=== PATIENT | male | born 1965 | race Caucasian/White ===

== ENCOUNTER 2017-01-13 13:17 | Emergency (ER) | payer OTHER ==
[2017-01-13 13:38] VITALS: BP 111/63
--- NOTE | 2017-01-13 13:53 | UC ---
Complaint Male HPI - HPI Summary HPI Summary: pt presents with sudden onset of left side testicular pain. Pain reports that he was eating lunch and had sudden onset of left side testicular pain. Denies injury, recent STD exposure, dysuria or penile discharge. - History of Current Complaint Chief Complaint: UCGU Stated Complaint: PERSONAL Time Seen by Provider: 01/13/17 13:40 Hx Obtained From: Patient Onset/Duration: Sudden Onset, Lasting Hours Timing: Constant Severity Initially: Moderate Severity Currently: Mild Location: Testicle - left side Character: Sharp Alleviating Factor(s): Nothing Associated Signs And Symptoms: Positive: Negative - Allergies/Home Medications Allergies/Adverse Reactions: Allergies Allergy/AdvReac Type Severity Reaction Status Date / Time Levofloxacin [From Levaquin] AdvReac Dizziness Verified 01/13/17 13:31 Home Medications: Home Medications Spicer-3 Fatty Acids [Fish Oil] 1,000 mg PO DAILY 01/13/17 [History Confirmed 09/21] PMH/Surg Hx/FS Hx/Imm Hx Previously Healthy: Yes Endocrine History Of: Denies: Diabetes Cardiovascular History Of: Reports: Hypertension Respiratory History Of: Denies: Asthma Neurological History Of: Reports: TIA - Surgical History Surgical History: None - Family History Known Family History: Positive: Other - positive [facility] for URI - Social History Alcohol Use: Daily Alcohol Amount: 3 cans beer daily Substance Use Type: None Smoking Status (MU): Never Smoked Tobacco Review of Systems Constitutional: Negative Skin: Negative Eyes: Negative ENT: Negative Respiratory: Negative Cardiovascular: Negative Gastrointestinal: Negative Genitourinary: Other - left side testicular pain Motor: Negative Neurovascular: Negative Musculoskeletal: Negative Neurological: Negative Psychological: Negative All Other Systems Reviewed And Are Negative: Yes Physical Exam Triage Information Reviewed: Yes Appearance: Well-Appearing Vital Signs: Initial Vital Signs Temp 98.5 F 01/13/17 13:32 Pulse 75 01/13/17 13:32 Resp 16 01/13/17 13:32 BP 111/63 01/13/17 13:32 Pulse Ox 98 01/13/17 13:32 Vital Signs Reviewed: Yes Eye Exam: Normal Respiratory Exam: Other Respiratory: Positive: No respiratory distress Abdomen Description: Positive: Other: - no palpable scrotum/testicles, no inguinal hernia appreciated, no noted sores or discharge on scrotum or penis. No swelling on scrotum/testicles. Neurological Exam: Normal Psychological Exam: Normal Skin Exam: Normal Complaint Male Course/Dx - Course Course Of Treatment: I spoke with the pt discussing no appreciated mass, lump, swelling, discharge or sores in genital area. UA did not reveal any abnormal results. Irecommended that he follow up with his PCP, return to clinic or seek care at the closest ED is symptoms worsen or do not resolve. - Differential Dx/Diagnosis Differential Diagnosis/HQI/PQRI: Epididymitis, Urinary Tract Infection, Other - testicular pain Provider Diagnoses: testicular pain-left side Discharge - Discharge Plan Condition: Stable Disposition: HOME Patient Education Materials: Testicle Pain (ED) Referrals: Sajan Cifuentes NP [Nurse Practitioner] - Sparkle Garcia PA [Primary Care Provider] - Additional Instructions: Your physical exam and laboratory tests did not reveal any active illness, injury or unusual finding. Please follow up with your PCP or return to clinic as needed. If your symptoms worsen please seek care as soon as possible.
== END 2017-01-13 14:36 | disposition home or self-care (01) ==
LOC: UCCORT 13:17
DX: N50.812 Left testicular pain (principal); I10 Essential (primary) hypertension; Z86.73 Personal history of transient ischemic attack (TIA), and cerebral infarction without residual deficits; Z88.1 Allergy status to other antibiotic agents
CPT/HCPCS: 81003; 87491; 87591; 99211; G0463

== ENCOUNTER 2017-11-27 12:01 | Emergency (ER) | payer OTHER ==
--- OUTSIDE RECORDS SUMMARY | 2017-11-27 12:12 | XMS REPORT ---
:1965 External Reference #:[id number] Author Organization [facility] Address [address], [address] [place] [address] Phone [phone] Care Team Providers Name Role Phone Sincere Haynes Care Team Information Vice President Sales And Marketing Unavailable Connie Rivera MD Primary Care Physician Unavailable Payers Type Date Identification Numbers Payment Provider Subscriber Commercial Effective: Policy Number: [facility] Rickie Vásquez JR 2016 [id number] PayID: [id number] [address] [place] [address] Medicaid Policy Number: [id number] Medicaid Rickie Vásquez JR PayID: [id number] [address] [place] [address] Problems Date Description Provider Status Onset: 01/15/2014 Chest pain MARCK Marte Active Onset: 01/15/2014 Pure hyperglyceridemia MARCK Marte Active Note: 227 April 2017; LDL 50 Onset: 05/04/2016 Trochanteric bursitis Blayne Milton M.D. Active Onset: 09/18/2016 Spermatocele Sparkle Garcia PA-C Active Note: L testicle; persistent left epididymal body and tail cyst Onset: 09/18/2016 Adult health examination Sparkle Garcia PA-C Active Note: PSA Aug 2016; fatty liver hx noted Upper 2012 Onset: 09/18/2016 Polyp of colon Sparkle Garcia PA-C Active Note: TA; colo to TI Bx March 2013 Onset: 09/18/2016 Liver cyst Sparkle Garcia PA-C Active Note: CT 2012 Onset: 12/19/2016 H/O: TIA Sparkle Garcia PA-C Active Note: 2014; LDL 23 HDL Dec Onset: 04/18/2017 Arthritis of shoulder region joint YUNIOR Chavez Active Note: R Onset: 06/25/2017 Hemorrhoids without complication Narayan Dillard MD,FACS Active Onset: 06/25/2017 Diarrhea Narayan Dillard MD,FACS Active Onset: 07/30/2017 Congenital cystic disease of liver Narayan Dillard MD,FACS Active Onset: 08/31/2017 Abdominal pain Osman Isbell MD Active Onset: 08/31/2017 Constipation Osman Isbell MD Active Onset: 10/17/2017 Hyperlipidemia Connie Rivera MD Active Onset: 10/17/2017 Essential hypertension Connie Rivera MD Active Onset: 10/17/2017 Low back pain Connie Rivera MD Active Onset: 06/08/2017 Other hemorrhoids Osman Isbell MD Inactive Inactive: 10/16/2017 Onset: 08/31/2017 Abnormal findings diagnostic imaging of Osman Isbell MD Inactive liver+biliary tract Inactive: 10/16/2017 Onset: 08/31/2017 History of polyp of colon Osman Isbell MD Inactive Inactive: 10/16/2017 Onset: 09/18/2016 Dysthymia Sparkle Garcia PA-C Inactive Inactive: 10/16/2017 Family History Date Family Member(s) Problem(s) Comments General Non Contributory Onset: (age 65 Years) Father Myocardial Infarction and of CVA Mother Stroke Social History Type Date Description Comments Marital Status Single Home Environment Lives Alone Diet Patient follows no dietary restrictions Occupation Currently Working Occupation Dog Warden Work Status Currently Working ADL's/IADL's Independent with all ADL's Cigarette Use Never Smoked Cigarettes Smokeless Tobacco Never Used Smokeless Tobacco ETOH Use Drinks Alcoholic Beverages Occasionally 3-4 d ETOH Use Uses Alcohol Daily Smoking Patient denies history of smoking Recreational Drug Use Denies Drug Use Daily Caffeine Consumes on average 5 sodas per day Allergies, Adverse Reactions, Alerts Date Description Reaction Status Severity Comments 09/18/2016 Levaquin active severe dizziness 01/13/2014 NKDA inactive Medications Medication Date Status Form Strength Qnty SIG Indications Ordering Provider Cyclobenzaprine 11/13/ Active Tablets 10mg 30tab 1 tab by Connie HCL 2017 s mouth at Miguel, night for back pain Miralax 08/31/ Active Powder 3350NF 3Bott 3 cap by K59.00 Young 2017 les mouth MD Sukhi every day every morning Mucinex 03/26/ Active Tablets ER 600mg 60tab 1 by mouth Connie 2017 12HR s twice a Miguel, day as MD needed Atorvastatin 12/19/ Active Tablets 20mg 30tab take one Connie Calcium 2016 s tablet by Miguel, mouth every evening Naproxen 11/22/ Active Tablets 500mg 180ta 1 by mouth Jarad Crum 2016 bs every 12 David DO hours as needed Fish Oil 09/18/ Active Capsules 600mg 1 po daily Jarad Crum 2015 David DO Aspirin Ec / Active Tablets DR 81mg 90tab 1 by mouth Mata 0000 s every day Ruben Guido Metoprolol / Active Tablets 100mg 90tab 1 by mouth Mata Tartrate 0000 s daily Ruben Guido Peg 08/31/ Hx Solution 240gm 4000m drink 1/2 K59.00 Osman 3350/Electrolytes 2017 Rec l at night MD Sukhi prior and drink 1/2 in the morning of the procedure Amoxicillin 07/03/ Hx Capsules 500mg 21cap 1 by mouth J01.90 Mata 2016 - three Guido, 07/30/ times a M.D. 2017 day x 7 days Benzonatate 07/03/ Hx Capsules 200mg 90cap 1 by mouth J01.90 Mata 2016 three Guido, 07/30/ times a M.D. 2016 day as needed cough Niacin ER 05/02/ Hx Tablets ER 500mg 180ta 1 by mouth G45.9 Mata (Antihyperlipidem 2016 - (500 mg) brandon Guido) 07/03/ every M.D. 2017 night at bedtime x4 week, then incr. to 2 tablets (1000 mg) qhs. Triamcinolone 12/19/ Hx Cream 0.1% 90gm apply R21 Mata Acetonide 2016 spaingly Guido, twice a M.D. day as needed to arms for pruritus x 3 weeks Hydroxyzine HCL 12/19/ Hx Tablets 25mg 360ta 1-2 by R21 Mata 2017 - bs mouth at Guido, 07/30/ night as M.D. 2016 needed for itching Lisinopril 10/03/ Hx Tablets 10mg 30tab 1 by mouth Blayne 2016 - s every day [place], 10/04/ M.D. 2016 Atorvastatin 09/18/ Hx Tablets 40mg 90tab 1 tab by Z86.73 Jarad Crum Calcium 2016 - s mouth David DO 12/19/ daily at 2017 bedtime Acetaminophen 09/18/ Hx Tablets 500mg 150ta 2 by mouth M70.60 Jarad Crum Extra Strength 2016 bs three David DO times a day as needed No Active Hx Unknown Medications 2013 - 2014 No Active Hx Unknown Medications 2013 - 2013 Tricor / Hx Tablets 145mg 30tab 1 po qd Unknown 0000 s Gemfibrozil / Hx Tablets 600mg 1 by mouth Unknown 0000 - twice a day 2015 Metoprolol / Hx Tablets 25mg 1 by mouth Unknown Tartrate 0000 twice a day Ibuprofen / Hx Tablets Unknown 0000 Mucinex / Hx Tablets ER 600mg Take One Unknown 0000 12HR Tablet By Mouth Twice A Day as Needed Gemfibrozil / Hx Tablets 600mg Oralia 0000 - Cary 12/19/ Nanci, 2016 RPA-C Omeprazole / Hx Capsules 20mg 1 po daily [place], 0000 DR Peters, BOND UNDERWRITER Immunizations CPT Code Status Date Vaccine Lot # [id number] Given 04/18/2017 Tdap injection [id number] Vital Signs Date Vital Result Comment 11/13/2017 BP Systolic 123 mmHg BP Diastolic 73 mmHg Heart Rate 68 /min Respiratory Rate 14 /min Height 66 inches 5'6" Weight 204.38 lb BMI (Body Mass Index) 33.0 kg/m2 BSA (Body Surface Area) 2.02 m2 Louin body weight in kilograms 64 O2 % BldC Oximetry 95 % 10/17/2017 BP Systolic Sitting Left Arm 126 mmHg BP Diastolic Sitting Left Arm 78 mmHg Heart Rate 78 /min Respiratory Rate 16 /min Height 66 inches 5'6" Weight 200.00 lb BMI (Body Mass Index) 32.3 kg/m2 BSA (Body Surface Area) 2.00 m2 Lou[place] body weight in kilograms 64 08/31/2017 BP Systolic Sitting Left Arm 122 mmHg BP Diastolic Sitting Left Arm 82 mmHg Heart Rate 70 /min Respiratory Rate 16 /min Height 66 inches 5'6" Weight 200.00 lb BMI (Body Mass Index) 32.3 kg/m2 BSA (Body Surface Area) 2.00 m2 Louin body weight in kilograms 64 07/30/2017 BP Systolic 119 mmHg BP Diastolic 80 mmHg Body Temperature 97.5 F Heart Rate 59 /min Height 66 inches 5'6" Weight 198.00 lb BMI (Body Mass Index) 32.0 kg/m2 BSA (Body Surface Area) 1.99 m2 Louin body weight in kilograms 64 07/11/2017 BP Systolic 132 mmHg BP Diastolic 88 mmHg Height 66 inches 5'6" Weight 197.00 lb BMI (Body Mass Index) 31.8 kg/m2 BSA (Body Surface Area) 1.99 m2 Louin body weight in kilograms 64 07/03/2017 BP Systolic 128 mmHg BP Diastolic 86 mmHg Body Temperature 98.0 F Heart Rate 62 /min Respiratory Rate 16 /min Height 66 inches 5'6" Weight 195.50 lb BMI (Body Mass Index) 31.6 kg/m2 BSA (Body Surface Area) 1.98 m2 Louin body weight in kilograms 64 O2 % BldC Oximetry 97 % 06/25/2017 BP Systolic 130 mmHg BP Diastolic 88 mmHg Body Temperature 97.6 F Heart Rate 60 /min Height 66 inches 5'6" Weight 196.00 lb BMI (Body Mass Index) 31.6 kg/m2 BSA (Body Surface Area) 1.98 m2 Louin body weight in kilograms 64 O2 % BldC Oximetry 95 % 06/08/2017 BP Systolic Sitting Left Arm 120 mmHg BP Diastolic Sitting Left Arm 76 mmHg Heart Rate 67 /min Respiratory Rate 16 /min Height 66 inches 5'6" Weight 196.00 lb BMI (Body Mass Index) 31.6 kg/m2 BSA (Body Surface Area) 1.98 m2 Louin body weight in kilograms 64 05/02/2017 BP Systolic Sitting Left Arm 123 mmHg BP Diastolic Sitting Left Arm 77 mmHg Body Temperature 98.0 F Heart Rate 71 /min Height 66 inches 5'6" Weight 205.25 lb BMI (Body Mass Index) 33.1 kg/m2 BSA (Body Surface Area) 2.02 m2 Louin body weight in kilograms 64 O2 % BldC Oximetry 98 % 04/18/2017 BP Systolic 124 mmHg BP Diastolic 84 mmHg Heart Rate 74 /min Height 66 inches 5'6" Weight 204.00 lb BMI (Body Mass Index) 32.9 kg/m2 BSA (Body Surface Area) 2.02 m2 Louin body weight in kilograms 64 12/19/2016 BP Systolic 134 mmHg BP Diastolic 86 mmHg Heart Rate 74 /min Height 66 inches 5'6" Weight 207.00 lb BMI (Body Mass Index) 33.4 kg/m2 BSA (Body Surface Area) 2.03 m2 10/10/2016 BP Systolic 132 mmHg BP Diastolic 88 mmHg Body Temperature 97.7 F Heart Rate 64 /min Height 66 inches 5'6" Weight 199.00 lb BMI (Body Mass Index) 32.1 kg/m2 BSA (Body Surface Area) 2.00 m2 09/18/2016 BP Systolic 122 mmHg BP Diastolic 81 mmHg Heart Rate 72 /min Height 66 inches 5'6" Weight 198.00 lb BMI (Body Mass Index) 32.0 kg/m2 BSA (Body Surface Area) 1.99 m2 05/04/2016 BP Systolic 136 mmHg BP Diastolic 91 mmHg Heart Rate 67 /min Height 66 inches 5'6" Weight 206.00 lb BMI (Body Mass Index) 33.2 kg/m2 BSA (Body Surface Area) 2.03 m2 Louin body weight in kilograms 64 01/15/2014 BP Systolic Sitting Right Arm 136 mmHg BP Diastolic Sitting Right Arm 88 mmHg Heart Rate 87 /min Respiratory Rate 16 /min Height 63 inches 5'3" Weight 212.00 lb BMI (Body Mass Index) 37.6 kg/m2 BSA (Body Surface Area) 1.98 m2 Results Test Date Test Result H/L Range Note LDL Cholesterol Profile 10/12/2017 Cholesterol 119 mg/dL <200 1, 2 Triglycerides 191 mg/dL High <150 1, 3 HDL Cholesterol 40 mg/dL >40 1, 4 LDL-Cholesterol 41 mg/dL < 100 1, 5 Laboratory test finding 10/12/2017 Prostate Specific 0.43 ng/mL < 4.0 1, 6 Antigen CBS W/Automated Diff 10/12/2017 White Blood Count 8.4 K/uL 3.4-10.5 1 Red Blood Count 4.48 M/uL 4.20-5.80 1 Hemoglobin 14.4 gm/dL 12.8-17.0 1 Hematocrit 42.6 % 38.0-48.0 1 Mean Cell Volume 95.1 fl 80.0-96.0 1 Mean Corpuscular HGB 32.1 pg 27.0-33.0 1 Mean Corpuscular HGB Conc 33.8 g/dL 31.7-36.0 1 Platelet Count 288 K/uL 155-360 1 Red Cell Distri Width SD 42.1 fl 36-51 1 Red Cell Distri Width %CV 12.4 % 11.6-15.8 1 Mean Platelet Volume 8.8 fL 6.6-10.6 1 Neut% 34.0 % 33.0-73.0 1 Lymph % 59.6 % High 20.0-42.0 1 Cameron % 5.1 % 0.0-10.0 1 Eo% 1.1 % 0.0-6.6 1 Bas% 0.2 % 0.0-1.1 1 Neut# 2.83 K/uL 1.8-7.0 1 Lymph # 4.98 K/uL High 1.0-4.0 1 Cameron # 0.43 K/uL 0.0-0.8 1 Eos # 0.09 K/uL 0.0-0.5 1 Baso # 0.02 K/uL 0.0-0.1 1 Comprehensive Metabolic Panel 10/12/2017 Glucose 109 mg/dL High 74-106 1 BUN 23 mg/dL High 7-18 1 Creatinine 1.2 mg/dL 0.6-1.3 1 Glom Filtration Rate, Estimate >60 mL/min >60 1 If >60 mL/min >60 1, 7 BUN/Creat 19.1 ratio 1 Sodium 140 mmol/L 136-145 1 Potassium 4.0 mmol/L 3.5-5.1 1 Chloride 107 mmol/L 98-107 1 Carbon Dioxide 29 mmol/L 21-32 1 Anion Gap 4 mEq/L Low 8-16 1 Calcium 8.9 mg/dL 8.5-10.1 1 Total Protein 7.2 g/dL 6.4-8.2 1 Albumin 3.8 g/dL 3.4-5.0 1 Globulin 3.4 g/dL 1.9-4.3 1 Alb/Glob 1.1 ratio 1 Bilirubin,Total 0.8 mg/dL 0.2-1.0 1 Sgot/Ast 21 U/L 15-37 1 SGPT/Alt 43 U/L 12-78 1 Alkaline Phosphatase 48 U/L 45-117 1 Ua RFX Micro & Culture II 09/29/2017 Urine Color YELLOW Yellow 8 Urine Clarity CLEAR Clear 8 Urine Glucose - Dipstick NEGATIVE mg/dL Negative 8 Urine Bilirubin - Dipstick NEGATIVE Negative 8 Urine Ketone NEGATIVE mg/dL Negative 8 Urine Specific [place] >=1.030 1.010-1.030 8 Urine Blood NEGATIVE Negative 8 Urine PH 5.5 Low 6.5-7.5 8 Urine Protein - Dipstick NEGATIVE mg/dL Negative 8 Urine Urobilinogen - Dipstick 0.2 E.U./dL 0.2-1.0 8 Urine Nitrite - Dipstick NEGATIVE Negative 8 Urine Leuk Esterase NEGATIVE Negative 8 Source: URINE, CLEAN CAT <SEE NOTE> 8, 9 CBS W/Automated Diff 09/29/2017 White Blood Count 7.7 K/uL 3.4-10.5 8 Red Blood Count 4.36 M/uL 4.20-5.80 8 Hemoglobin 14.2 gm/dL 12.8-17.0 8 Hematocrit 41.5 % 38.0-48.0 8 Mean Cell Volume 95.2 fl 80.0-96.0 8 Mean Corpuscular HGB 32.6 pg 27.0-33.0 8 Mean Corpuscular HGB Conc 34.2 g/dL 31.7-36.0 8 Platelet Count 263 K/uL 150-400 8 Red Cell Distri Width SD 42.4 fl 36-51 8 Red Cell Distri Width %CV 12.6 % 11.6-15.8 8 Mean Platelet Volume 9.0 fL 6.6-10.6 8 Neut% 33.5 % 33.0-73.0 8 Lymph % 58.7 % High 20.0-42.0 8 Cameron % 5.8 % 0.0-10.0 8 Eo% 1.7 % 0.0-6.6 8 Bas% 0.3 % 0.0-1.1 8 Neut# 2.59 K/uL 1.8-7.0 8 Lymph # 4.53 K/uL High 1.0-4.0 8 Cameron # 0.45 K/uL 0.0-0.8 8 Eos # 0.13 K/uL 0.0-0.5 8 Baso # 0.02 K/uL 0.0-0.1 8 Ua RFX Micro & Culture II 08/28/2017 Urine Color YELLOW Yellow 10 Urine Clarity CLEAR Clear 10 Urine Glucose - Dipstick NEGATIVE mg/dL Negative 10 Urine Bilirubin - Dipstick NEGATIVE Negative 10 Urine Ketone NEGATIVE mg/dL Negative 10 Urine Specific [place] 1.025 1.010-1.030 10 Urine Blood NEGATIVE Negative 10 Urine PH 6.0 Low 6.5-7.5 10 Urine Protein - Dipstick NEGATIVE mg/dL Negative 10 Urine Urobilinogen - Dipstick 0.2 E.U./dL 0.2-1.0 10 Urine Nitrite - Dipstick NEGATIVE Negative 10 Urine Leuk Esterase NEGATIVE Negative 10 Source: URINE, CLEAN CAT <SEE 10, 11 NOTE> CBS W/Automated Diff 08/28/2017 White Blood Count 9.2 K/uL 3.4-10.5 10 Red Blood Count 4.26 M/uL 4.20-5.80 10 Hemoglobin 13.9 gm/dL 12.8-17.0 10 Hematocrit 41.0 % 38.0-48.0 10 Mean Cell Volume 96.2 fl High 80.0-96.0 10 Mean Corpuscular HGB 32.6 pg 27.0-33.0 10 Mean Corpuscular HGB Conc 33.9 g/dL 31.7-36.0 10 Platelet Count 236 K/uL 150-400 10 Red Cell Distri Width SD 43.3 fl 36-51 10 Red Cell Distri Width %CV 12.8 % 11.6-15.8 10 Mean Platelet Volume 9.2 fL 6.6-10.6 10 Neut% 41.6 % 33.0-73.0 10 Lymph % 50.5 % High 20.0-42.0 10 Cameron % 6.5 % 0.0-10.0 10 Eo% 1.1 % 0.0-6.6 10 Bas% 0.3 % 0.0-1.1 10 Neut# 3.83 K/uL 1.8-7.0 10 Lymph # 4.66 K/uL High 1.0-4.0 10 Cameron # 0.60 K/uL 0.0-0.8 10 Eos # 0.10 K/uL 0.0-0.5 10 Baso # 0.03 K/uL 0.0-0.1 10 Comprehensive Metabolic Panel 08/28/2017 Glucose 87 mg/dL 74-106 10 BUN 25 mg/dL High 7-18 10 Creatinine 1.2 mg/dL 0.6-1.3 10 Glom Filtration Rate, Estimate >60 mL/min >60 10 If >60 mL/min >60 10, 12 BUN/Creat 20.8 ratio 10 Sodium 141 mmol/L 136-145 10 Potassium 3.8 mmol/L 3.5-5.1 10 Chloride 107 mmol/L 98-107 10 Carbon Dioxide 27 mmol/L 21-32 10 Anion Gap 7 mEq/L Low 8-16 10 Calcium 9.0 mg/dL 8.5-10.1 10 Total Protein 7.1 g/dL 6.4-8.2 10 Albumin 4.0 g/dL 3.4-5.0 10 Globulin 3.1 g/dL 1.9-4.3 10 Alb/Glob 1.3 ratio 10 Bilirubin,Total 0.6 mg/dL 0.2-1.0 10 Sgot/Ast 21 U/L 15-37 10 SGPT/Alt 37 U/L 12-78 10 Alkaline Phosphatase 44 U/L Low 45-117 10 Laboratory test finding 08/28/2017 Lipase 228 U/L 56-289 10 Occult Blood,Stool 08/28/2017 Stool Occult NEGATIVE Negative 10, 13 Blood-Single Spec Laboratory test finding 07/19/2017 CK 108 U/L 39-308 14 Troponin-I < 0.015 ng/mL 14, 15 Comprehensive Metabolic Panel 07/19/2017 Glucose 105 mg/dL 74-106 14 BUN 25 mg/dL High 7-18 14 Creatinine 1.2 mg/dL 0.6-1.3 14 Glom Filtration Rate, Estimate >60 mL/min >60 14 If >60 mL/min >60 14, 16 BUN/Creat 20.8 ratio 14 Sodium 143 mmol/L 136-145 14 Potassium 4.0 mmol/L 3.5-5.1 14 Chloride 108 mmol/L High 98-107 14 Carbon Dioxide 27 mmol/L 21-32 14 Anion Gap 8 mEq/L 8-16 14 Calcium 8.5 mg/dL 8.5-10.1 14 Total Protein 6.5 g/dL 6.4-8.2 14 Albumin 3.8 g/dL 3.4-5.0 14 Globulin 2.7 g/dL 1.9-4.3 14 Alb/Glob 1.4 ratio 14 Bilirubin,Total 1.2 mg/dL High 0.2-1.0 14 Sgot/Ast 17 U/L 15-37 14 SGPT/Alt 37 U/L 12-78 14 Alkaline Phosphatase 48 U/L 45-117 14 CBS W/Automated Diff 07/19/2017 White Blood Count 6.5 K/uL 3.4-10.5 14 Red Blood Count 4.03 M/uL Low 4.20-5.80 14 Hemoglobin 13.3 gm/dL 12.8-17.0 14 Hematocrit 38.5 % 38.0-48.0 14 Mean Cell Volume 95.5 fl 80.0-96.0 14 Mean Corpuscular HGB 33.0 pg 27.0-33.0 14 Mean Corpuscular HGB Conc 34.5 g/dL 31.7-36.0 14 Platelet Count 262 K/uL 150-400 14 Red Cell Distri Width SD 41.2 fl 36-51 14 Red Cell Distri Width %CV 12.1 % 11.6-15.8 14 Mean Platelet Volume 9.4 fL 6.6-10.6 14 Neut% 36.6 % 33.0-73.0 14 Lymph % 56.2 % High 20.0-42.0 14 Cameron % 5.2 % 0.0-10.0 14 Eo% 1.7 % 0.0-6.6 14 Bas% 0.3 % 0.0-1.1 14 Neut# 2.39 K/uL 1.8-7.0 14 Lymph # 3.67 K/uL 1.0-4.0 14 Cameron # 0.34 K/uL 0.0-0.8 14 Eos # 0.11 K/uL 0.0-0.5 14 Baso # 0.02 K/uL 0.0-0.1 14 Basic Metabolic Panel 06/27/2017 Glucose 103 mg/dL 74-106 17 BUN 26 mg/dL High 7-18 17 Creatinine 1.1 mg/dL 0.6-1.3 17 Glom Filtration Rate, Estimate >60 mL/min >60 17 If >60 mL/min >60 17, 18 BUN/Creat 23.6 ratio 17 Sodium 143 mmol/L 136-145 17 Potassium 4.2 mmol/L 3.5-5.1 17 Chloride 110 mmol/L High 98-107 17 Carbon Dioxide 29 mmol/L 21-32 17 Anion Gap 4 mEq/L Low 8-16 17 Calcium 9.2 mg/dL 8.5-10.1 17 CBC 06/27/2017 White Blood Count 7.3 K/uL 3.4-10.5 17 Red Blood Count 4.20 M/uL 4.20-5.80 17 Hemoglobin 13.7 gm/dL 12.8-17.0 17 Hematocrit 40.3 % 38.0-48.0 17 Mean Cell Volume 96.0 fl 80.0-96.0 17 Mean Corpuscular HGB 32.6 pg 27.0-33.0 17 Mean Corpuscular HGB Conc 34.0 g/dL 31.7-36.0 17 Platelet Count 262 K/uL 150-400 17 Red Cell Distri Width %CV 12.2 % 11.6-15.8 17 Mean Platelet Volume 9.7 fL 6.6-10.6 17 Xray 06/02/2017 Ultrasound, <pending> Abdominal Comprehensive 06/02/2017 Glucose 112 mg/dL High 74-106 19 Metabolic Panel BUN 27 mg/dL High 7-18 19 Creatinine 1.2 mg/dL 0.6-1.3 19 Glom Filtration Rate, Estimate >60 mL/min >60 19 If >60 mL/min >60 19, 20 BUN/Creat 22.5 ratio 19 Sodium 141 mmol/L 136-145 19 Potassium 3.9 mmol/L 3.5-5.1 19 Chloride 108 mmol/L High 98-107 19 Carbon Dioxide 26 mmol/L 21-32 19 Anion Gap 7 mEq/L Low 8-16 19 Calcium 8.9 mg/dL 8.5-10.1 19 Total Protein 6.7 g/dL 6.4-8.2 19 Albumin 3.7 g/dL 3.4-5.0 19 Globulin 3.0 g/dL 1.9-4.3 19 Alb/Glob 1.2 ratio 19 Bilirubin,Total 1.1 mg/dL High 0.2-1.0 19 Sgot/Ast 42 U/L High 15-37 19 SGPT/Alt 55 U/L 12-78 19 Alkaline Phosphatase 50 U/L 45-117 19 CBS W/Automated Diff 06/02/2017 White Blood Count 6.8 K/uL 3.4-10.5 19 Red Blood Count 4.02 M/uL Low 4.20-5.80 19 Hemoglobin 13.3 gm/dL 12.8-17.0 19 Hematocrit 38.1 % 38.0-48.0 19 Mean Cell Volume 94.8 fl 80.0-96.0 19 Mean Corpuscular HGB 33.1 pg High 27.0-33.0 19 Mean Corpuscular HGB Conc 34.9 g/dL 31.7-36.0 19 Platelet Count 249 K/uL 150-400 19 Red Cell Distri Width SD 40.8 fl 36-51 19 Red Cell Distri Width %CV 12.1 % 11.6-15.8 19 Mean Platelet Volume 9.2 fL 6.6-10.6 19 Neut% 40.2 % 33.0-73.0 19 Lymph % 51.3 % High 20.0-42.0 19 Cameron % 6.6 % 0.0-10.0 19 Eo% 1.8 % 0.0-6.6 19 Bas% 0.1 % 0.0-1.1 19 Neut# 2.72 K/uL 1.8-7.0 19 Lymph # 3.48 K/uL 1.0-4.0 19 Cameron # 0.45 K/uL 0.0-0.8 19 Eos # 0.12 K/uL 0.0-0.5 19 Baso # 0.01 K/uL 0.0-0.1 19 Laboratory test finding 04/30/2017 CK 99 U/L 39-308 21, 22 Troponin-I < 0.015 ng/mL 21, 23 Ua RFX Micro & Culture II 04/30/2017 Urine Color YELLOW Yellow 21 Urine Clarity CLEAR Clear 21 Urine Glucose - Dipstick NEGATIVE mg/dL Negative 21 Urine Bilirubin - Dipstick NEGATIVE Negative 21 Urine Ketone NEGATIVE mg/dL Negative 21 Urine Specific [place] >=1.030 1.010-1.030 21 Urine Blood NEGATIVE Negative 21 Urine PH 5.0 Low 6.5-7.5 21 Urine Protein - Dipstick NEGATIVE mg/dL Negative 21 Urine Urobilinogen - Dipstick 0.2 E.U./dL 0.2-1.0 21 Urine Nitrite - Dipstick NEGATIVE Negative 21 Urine Leuk Esterase NEGATIVE Negative 21 Source: URINE, CLEAN CAT <SEE , 24 NOTE> Comprehensive Metabolic Panel 04/30/2017 Glucose 127 mg/dL High 74-106 21 BUN 23 mg/dL High 7-18 21 Creatinine 1.1 mg/dL 0.6-1.3 21 Glom Filtration Rate, Estimate >60 mL/min >60 21 If >60 mL/min >60 21, 25 BUN/Creat 20.9 ratio 21 Sodium 141 mmol/L 136-145 21 Potassium 3.6 mmol/L 3.5-5.1 21 Chloride 107 mmol/L 98-107 21 Carbon Dioxide 26 mmol/L 21-32 21 Anion Gap 8 mEq/L 8-16 21 Calcium 8.5 mg/dL 8.5-10.1 21 Total Protein 6.7 g/dL 6.4-8.2 21 Albumin 3.9 g/dL 3.4-5.0 21 Globulin 2.8 g/dL 1.9-4.3 21 Alb/Glob 1.4 ratio 21 Bilirubin,Total 0.8 mg/dL 0.2-1.0 21 Sgot/Ast 21 U/L 15-37 21 SGPT/Alt 46 U/L 12-78 21 Alkaline Phosphatase 45 U/L 45-117 21 Laboratory test finding 04/30/2017 Act Partial Thrombo 25.0 seconds 23.4- 35.0 21, 26 Time Ethyl Alcohol < 3.0 mg/dL 21, 27 Protime 04/30/2017 Protime 13.6 seconds 12.0-14.4 21 Inr 1.1 0.9-1.1 21, 28 CBS W/Automated Diff 04/30/2017 White Blood Count 7.3 K/uL 3.4-10.5 21 Red Blood Count 4.04 M/uL Low 4.20-5.80 21 Hemoglobin 13.5 gm/dL 12.8-17.0 21 Hematocrit 38.5 % 38.0-48.0 21 Mean Cell Volume 95.3 fl 80.0-96.0 21 Mean Corpuscular HGB 33.4 pg High 27.0-33.0 21 Mean Corpuscular HGB Conc 35.1 g/dL 31.7-36.0 21 Platelet Count 244 K/uL 150-400 21 Red Cell Distri Width SD 41.3 fl 36-51 21 Red Cell Distri Width %CV 12.2 % 11.6-15.8 21 Mean Platelet Volume 9.2 fL 6.6-10.6 21 Neut% 32.0 % Low 33.0-73.0 21 Lymph % 59.7 % High 20.0-42.0 21 Cameron % 5.6 % 0.0-10.0 21 Eo% 2.2 % 0.0-6.6 21 Bas% 0.5 % 0.0-1.1 21 Neut# 2.33 K/uL 1.8-7.0 21 Lymph # 4.36 K/uL High 1.0-4.0 21 Cameron # 0.41 K/uL 0.0-0.8 21 Eos # 0.16 K/uL 0.0-0.5 21 Baso # 0.04 K/uL 0.0-0.1 21 LDL Cholesterol Profile 04/17/2017 Cholesterol 133 mg/dL <200 29, 30 Triglycerides 227 mg/dL High <150 29, 31 HDL Cholesterol 38 mg/dL Low >40 29, 32 LDL-Cholesterol 50 mg/dL < 100 29, 33 GC/Chlamydia Amplified Rna 01/13/2017 Chlamydia trachomatis Negative Negative 34 Rna Neisseria gonorrhoeae (GC) Rna Negative Negative 34 Poc Urinalysis 01/13/2017 Poc Glucose, Urine Negative Negative Poc Bilirubin, Urine Negative Negative Poc Ketone, Urine Negative Negative Poc Specific [place], Urine >=1.030 1.010-1.030 Poc Blood, Urine Negative Negative Poc pH, Urine 5.0 5-9 Poc Protein, Urine Negative Negative Poc Urobilinogen, Urine 0.2 Negative Poc Nitrite, Urine Negative Negative Poc Leukocytes, Urine Negative Negative Poc Color, Urine Yellow Poc Clarity, Urine Clear 35 LDL Cholesterol Profile 12/19/2016 Cholesterol 112 mg/dL <200 36, 37 Triglycerides 276 mg/dL High <150 36, 38 HDL Cholesterol 34 mg/dL Low >40 36, 39 LDL-Cholesterol 23 mg/dL < 100 36, 40 Comprehensive Metabolic Panel 12/19/2016 Glucose 121 mg/dL High 74-106 36 BUN 15 mg/dL 7-18 36 Creatinine 1.1 mg/dL 0.6-1.3 36 Glom Filtration Rate, Estimate >60 mL/min >60 36 If >60 mL/min >60 36, 41 BUN/Creat 13.6 ratio 36 Sodium 141 mmol/L 136-145 36 Potassium 3.6 mmol/L 3.5-5.1 36 Chloride 105 mmol/L 98-107 36 Carbon Dioxide 26 mmol/L 21-32 36 Anion Gap 10 mEq/L 8-16 36 Calcium 8.6 mg/dL 8.5-10.1 36 Total Protein 6.6 g/dL 6.4-8.2 36 Albumin 3.8 g/dL 3.4-5.0 36 Globulin 2.8 g/dL 1.9-4.3 36 Alb/Glob 1.4 ratio 36 Bilirubin,Total 0.7 mg/dL 0.2-1.0 36 Sgot/Ast 21 U/L 15-37 36 SGPT/Alt 39 U/L 12-78 36 Alkaline Phosphatase 45 U/L 45-117 36 Ua RFX Micro & Culture II 10/10/2016 Urine Color YELLOW Yellow 42 Urine Clarity CLEAR Clear 42 Urine Glucose - Dipstick NEGATIVE mg/dL Negative 42 Urine Bilirubin - Dipstick NEGATIVE Negative 42 Urine Ketone NEGATIVE mg/dL Negative 42 Urine Specific [place] >=1.030 1.010-1.030 42 Urine Blood TRACE Negative 42 Urine PH 5.0 Low 6.5-7.5 42 Urine Protein - Dipstick NEGATIVE mg/dL Negative 42 Urine Urobilinogen - Dipstick 0.2 E.U./dL 0.2-1.0 42 Urine Nitrite - Dipstick NEGATIVE Negative 42 Urine Leuk Esterase NEGATIVE Negative 42 Source: URINE, CLEAN CAT <SEE 42, 43 NOTE> CBC 10/03/2016 White Blood Count 6.8 K/uL 3.4-10.5 44 Red Blood Count 4.35 M/uL 4.20-5.80 44 Hemoglobin 14.7 gm/dL 12.8-17.0 44 Hematocrit 42.3 % 38.0-48.0 44 Mean Cell Volume 97.2 fl High 80.0-96.0 44 Mean Corpuscular HGB 33.8 pg High 27.0-33.0 44 Mean Corpuscular HGB Conc 34.8 g/dL 31.7-36.0 44 Platelet Count 330 K/uL 150-400 44 Red Cell Distri Width %CV 12.9 % 11.6-15.8 44 Mean Platelet Volume 9.3 fL 6.6-10.6 44 Lupus Anticoagulant Reflex 10/03/2016 PTT-LA 32.2 sec 0.0-40.6 44 DRVVT 42.8 sec 0.0-44.0 44 Note: Comment: . 44, 45 Lyme AB/Western Blot 10/03/2016 Lyme Total AB/Reflex < 0.91 ISR 0.00- 0.90 44, 46 Reflex To WB Lyme Disease Antibody,QT,Igm <0.80 index 0.00-0.79 44, 47 Rheumatoid Panel ([facility]) 10/03/2016 Sedimentation Rate 4 mm/hr 0-15 44 Uric Acid 7.0 mg/dL 3.5-7.2 44 Hla-B27 Disease Association Negative . 44, 48 Anti-Nuclear Antibodies Direct Negative AU/mL Negative 44 Rheumatoid Factor Screen < 10.0 IU/mL 0.0-15.0 44 C-Reactive Protein,Quant < 2.9 mg/L <3.0 44 1 Z86.73,E78.5,Z12.5 2 Reference Guidelines*: Desirable: ........... < 200 mg/dL Borderline High: ..... 200-239 mg/dL High: ................ >=240 mg/dL * The National Cholesterol Education Program (NCEP) 3 Reference Guidelines*: Normal: ............. < 150 mg/dL Borderline High: .... 150-199 mg/dL High: ............... 200-499 mg/dL Very High: .......... > 500 mg/dL * Source: National Cholesterol Education Program (NCEP) 4 Reference Guidelines*: Low HDL: ..... < 40 mg/dL Normal: ..... 40-60 mg/dL Desirable: ... > 60 mg/dL *The National Cholesterol Education Program(NCEP) 5 Reference Guidelines*: Optimal:........... <100 mg/dL Near Optimal....... 100-129 mg/dL Borderline High.... 130-159 mg/dL High............... 160-189 mg/dL Very High.......... >=190 mg/dL * Source: National Cholesterol Education Program (NCEP) 6 THIS ASSAY IS NOT INTENDED A CANCER SCREENING TEST The concentration of PSA in a given specimen, determined with assays from different manufacturers, can vary due to differences in assay methods and reagent specificity. Values obtained from different assay methods cannot be used interchangeably. Method: [employer] Chemiluminescent immunoassay. 7 Note: Persistent reduction for 3 months or more in an eGFR <60 mL/min/1.73 m2 defines CKD. Patients with eGFR values >/=60 mL/min/1.73 m2 may also have CKD if evidence of persistent proteinuria is present. The original MDRD equation for estimated GFR is not valid for patients less than 18 years of age. Additional information may be found at www.kdoqi.org. 8 R SIDED PAIN 9 URINE, CLEAN CATCH 10 DIARRHEA,NAUSEA,DIZZY,LOWER ABDOMINAL PAIN 11 URINE, CLEAN CATCH 12 Note: Persistent reduction for 3 months or more in an eGFR <60 mL/min/1.73 m2 defines CKD. Patients with eGFR values >/=60 mL/min/1.73 m2 may also have CKD if evidence of persistent proteinuria is present. The original MDRD equation for estimated GFR is not valid for patients less than 18 years of age. Additional information may be found at www.kdoqi.org. 13 Method: [employer]u Hemoccult Card 14 NAUSEA,LEFT ARM PAIN,DIZZY 15 0.0 - 0.045 ng/mL: Normal 0.046 - 0.5 ng/mL: Suggestive 0.6 - 1.5 ng/mL: Consistent 16 Note: Persistent reduction for 3 months or more in an eGFR <60 mL/min/1.73 m2 defines CKD. Patients with eGFR values >/=60 mL/min/1.73 m2 may also have CKD if evidence of persistent proteinuria is present. The original MDRD equation for estimated GFR is not valid for patients less than 18 years of age. Additional information may be found at www.kdoqi.org. 17 [facility] 06/28 [address] 18 Note: Persistent reduction for 3 months or more in an eGFR <60 mL/min/1.73 m2 defines CKD. Patients with eGFR values >/=60 mL/min/1.73 m2 may also have CKD if evidence of persistent proteinuria is present. The original MDRD equation for estimated GFR is not valid for patients less than 18 years of age. Additional information may be found at www.kdoqi.org. 19 RECTAL PAIN - EXTREME 20 Note: Persistent reduction for 3 months or more in an eGFR <60 mL/min/1.73 m2 defines CKD. Patients with eGFR values >/=60 mL/min/1.73 m2 may also have CKD if evidence of persistent proteinuria is present. The original MDRD equation for estimated GFR is not valid for patients less than 18 years of age. Additional information may be found at www.kdoqi.org. 21 DIZZY,LEGS ARE NUMB 22 GOLD TOP WAS UNLABELED. 23 0.0 - 0.045 ng/mL: Normal 0.046 - 0.5 ng/mL: Suggestive 0.6 - 1.5 ng/mL: Consistent 24 URINE, CLEAN CATCH 25 Note: Persistent reduction for 3 months or more in an eGFR <60 mL/min/1.73 m2 defines CKD. Patients with eGFR values >/=60 mL/min/1.73 m2 may also have CKD if evidence of persistent proteinuria is present. The original MDRD equation for estimated GFR is not valid for patients less than 18 years of age. Additional information may be found at www.kdoqi.org. 26 Is patient on anticoagulants? Coumadin GOLD TOP WAS UNLABELED. 27 GOLD TOP WAS UNLABELED. 28 THERAPEUTIC INR RANGE: 2.0 - 3.0 DVT, Pulmonary embolus, prophylaxis against venous thrombosis or systemic embolization in high risk patients. 2.5 - 3.5 Mechanical heart valves 29 E78.5 30 Reference Guidelines*: Desirable: ........... < 200 mg/dL Borderline High: ..... 200-239 mg/dL High: ................ >=240 mg/dL * The National Cholesterol Education Program (NCEP) 31 Reference Guidelines*: Normal: ............. < 150 mg/dL Borderline High: .... 150-199 mg/dL High: ............... 200-499 mg/dL Very High: .......... > 500 mg/dL * Source: National Cholesterol Education Program (NCEP) 32 Reference Guidelines*: Low HDL: ..... < 40 mg/dL Normal: ..... 40-60 mg/dL Desirable: ... > 60 mg/dL *The National Cholesterol Education Program(NCEP) 33 Reference Guidelines*: Optimal:........... <100 mg/dL Near Optimal....... 100-129 mg/dL Borderline High.... 130-159 mg/dL High............... 160-189 mg/dL Very High.......... >=190 mg/dL * Source: National Cholesterol Education Program (NCEP) 34 [id number] Cadastral Engineer: [id number] COMFORT BHUMIKA 36 Z86.73 37 Reference Guidelines*: Desirable: ........... < 200 mg/dL Borderline High: ..... 200-239 mg/dL High: ................ >=240 mg/dL * The National Cholesterol Education Program (NCEP) 38 Reference Guidelines*: Normal: ............. < 150 mg/dL Borderline High: .... 150-199 mg/dL High: ............... 200-499 mg/dL Very High: .......... > 500 mg/dL * Source: National Cholesterol Education Program (NCEP) 39 Reference Guidelines*: Low HDL: ..... < 40 mg/dL Normal: ..... 40-60 mg/dL Desirable: ... > 60 mg/dL *The National Cholesterol Education Program(NCEP) 40 Reference Guidelines*: Optimal:........... <100 mg/dL Near Optimal....... 100-129 mg/dL Borderline High.... 130-159 mg/dL High............... 160-189 mg/dL Very High.......... >=190 mg/dL * Source: National Cholesterol Education Program (NCEP) 41 Note: Persistent reduction for 3 months or more in an eGFR <60 mL/min/1.73 m2 defines CKD. Patients with eGFR values >/=60 mL/min/1.73 m2 may also have CKD if evidence of persistent proteinuria is present. The original MDRD equation for estimated GFR is not valid for patients less than 18 years of age. Additional information may be found at www.kdoqi.org. 42 TESTICLES ARE BLUE 43 URINE, CLEAN CATCH 44 M46.1 45 No lupus anticoagulant was detected. 46 Negative <0.91 Equivocal 0.91 - 1.09 Positive >1.09 47 Negative <0.80 Equivocal 0.80 - 1.19 Positive >1.19 IgM levels may peak at 3-6 weeks post infection, then gradually decline. Performed at: - [facility] [id number] Ship Erector: Dario Champion MD, Phone: [phone] Performed at: - [facility] [id number] Ship Erector: Sona Cloud MD, Phone: [phone] Performed at: - [address] [id number] 48 HLA-B*27 Negative HLA allele interpretation for all loci based on IMGT/HLA database version 3.21.0 [facility] Lab CLIA ID Number [id number] This test was performed using PCR (Polymerase Chain Reaction)/SSOP (Sequence Specific Oligonucleotide Probes) technique. SBT (Sequence Based Typing) and/or SSP (Sequence Specific Primers) may be used as supplemental methods when necessary. Please contact [facility] Customer Service at if you have any questions. Director of [facility] Laboratory Dr Adam Carrillo, PhD Procedures Date CPT Code Description Status 06/28/2017 78926 Enucleation or excision external thrombotic hemorrhoid Completed 08/22/2016 Asp./Injection major joint Completed 06/28/2016 Asp./Injection major joint Completed 05/04/2016 Asp./Injection major joint Completed 01/27/2014 60780 ECHO Transthoracic Inc Performance Continuous Completed Electrocardio 01/15/2014 67520 EKG-Tracing And Report Completed 12/23/2013 37703 EKG Interpretation And Report Only Completed Encounters Type Date Location Provider CPT E/M Dx Office Visit 08/31/2017 8:15[place] [address] K59.00 R10.9 R93.2 Z86.010 Office Visit 07/30/2017 11:00a Surgical Office Narayan Dillard MD,FACS 67883 Q44.6 R19.7 Office Visit 07/03/2017 11:30a Primary Care Office Sparkle Garcia 11147 J01.90 PA-C I10 K64.8 Office Visit 06/25/2017 10:00a Surgical Office Narayan Dillard MD,FACS 42392 K64.9 R19.7 Office Visit 06/08/2017 3:30[place] [address] K64.8 Office Visit 05/02/2017 1:30p Primary Care Office Sparkle Garcia 05512 G45.9 PA-C I10 M70.60 F34.1 Office Visit 04/18/2017 10:00a Primary Care Office Sparkle Garcia 55454 E78.5 PA-C R21 M70.60 F34.1 I10 Z86.73 Z23 Office Visit 12/19/2016 1:30p Primary Care Office Sparkle Garcia PA-C 17595 R21 E78.5 Z86.73 F34.1 M70.60 Office Visit 10/26/2016 8:45a Orthopaedic Office Blayne Milton M.D. 25988 M70.62 Office Visit 10/10/2016 3:00p Primary Care Office Sparkle Warrencarlos Garcia, 08987 N50.819 PA-C M70.62 Office Visit 10/03/2016 11:15a Orthopaedic Office Blayne Milton M.D. 43690 M46.1 Office Visit 09/18/2016 1:00p Primary Care Office Sparkle Garcia, 25158 E78.5 PA-C Z86.73 F34.1 M70.60 I10 Z86.010 Office Visit 08/22/2016 2:45p Orthopaedic Office Blayne Milton M.D. 94846 M70.62 Office Visit 08/10/2016 11:00a Orthopaedic Office Blayne Milton M.D. 36017 M70.62 Office Visit 06/28/2016 11:15a Orthopaedic Office Blayne Milton M.D. 75185 M70.62 Office Visit 05/04/2016 10:45a Orthopaedic Office Blayne Milton M.D. 43337 M70.62 Office Visit 04/29/2015 2:31p Cardiology Office Vel Barton 69563 786.50 M.DJacob, FAC Office Visit 09/22/2014 5:25p [place] [address] 786.50 Office Visit 01/15/2014 9:10a Cardiology Office MARCK Marte 91061 786.50 272.1 Office Visit 10/31/2013 10:22a Cardiology Office Vel Barton 51300 786.50 M.DJacob, FACC Office Visit 08/22/2013 4:58p Cardiology Office Vel Barton 57913 786.50 M.DJacob, [facility] Plan of Care Future Appointment(s):01/15/2018 9:40 am - Connie Rivera MD at [facility] Cnmqay7111/23/2017 4:00 pm - Osman Isbell MD at 11/13/2017 - Connie Rivera, MDM54.5 Low back painComments:- mild arthritis on xray and has some muscular pain-Work note with restictions given-can still lift [id number]-Btqrihdqzv paperwork done-Advised heat to area -muscle relaxant at night -refusing PTAllNew Medication:Cyclobenzaprine HCL 10 mg
[2017-11-27 12:37] VITALS: BP 120/75
--- NOTE | 2017-11-27 13:10 | RAD ---
HISTORY: Right-sided rib pain COMPARISONS: None VIEWS: 6, Frontal view of the chest with frontal and oblique views of the right hemithorax. FINDINGS: There is no displaced rib fracture or pneumothorax. The visualized lungs are clear. Degenerative changes are noted of the spine IMPRESSION: NO DISPLACED RIB FRACTURE OR PNEUMOTHORAX. IF THERE IS PERSISTENT CLINICAL CONCERN FOR OSSEOUS PATHOLOGY OF THE RIBS, BONE SCANNING MAY BE MORE SENSITIVE.
--- NOTE | 2017-11-27 13:12 | UC ---
Truncal Trauma HPI - HPI Summary HPI Summary: RIGHT SIDE FLANK PAIN X 3 DAYS NO KNOWN INJURY , INCREASE PAIN WITH TWISTING HIS BODY, PAINFUL TO TOUCH NO SOB, NO COUGH, NO FEVER, NO CHILLS, NO DYSURIA , NO N/V/D/C - History Of Current Complaint Chief Complaint: UCBackPain Stated Complaint: RT FLANK PAIN Time Seen by Provider: 11/27/17 12:40 Hx Obtained From: Patient Onset/Duration: Gradual Onset, Lasting Days - 3, Still Present Severity Initially: Moderate Severity Currently: Moderate Mechanism Of Injury: Other - NO INJURY Aggravating Factor(s): Movement Alleviating factor(s): Nothing Associated Signs And Symptoms: Positive: Negative. Negative: SOB, Chest Pain, Cough, Hematuria, Abdominal Pain, Fever, Nausea, Vomiting - Allergies/Home Medications Allergies/Adverse Reactions: Allergies Allergy/AdvReac Type Severity Reaction Status Date / Time Levofloxacin [From Levaquin] AdvReac Dizziness Verified 11/27/17 12:28 Home Medications: Home Medications Atorvastatin* [Lipitor*] 10 mg PO DAILY 11/27/17 [History Confirmed 11/27/17] PMH/Surg Hx/FS Hx/Imm Hx Previously Healthy: Yes - Surgical History Surgical History: Yes Surgery Procedure, Year, and Place: HEMORROIDECTOMY - Family History Known Family History: Positive: None, Other - positive FMH for URI Negative: Diabetes - Social History Alcohol Use: Daily Alcohol Amount: 3 cans beer daily Substance Use Type: None Smoking Status (MU): Never Smoked Tobacco Review of Systems Constitutional: Negative Skin: Negative Eyes: Negative ENT: Negative Respiratory: Negative Is Patient Immunocompromised?: No All Other Systems Reviewed And Are Negative: Yes Physical Exam Triage Information Reviewed: Yes Appearance: Well-Appearing, No Pain Distress, Well-Nourished Vital Signs: Initial Vital Signs Temp 98.1 F 11/27/17 12:30 Pulse 69 11/27/17 12:30 Resp 18 11/27/17 12:30 BP 120/75 11/27/17 12:30 Pulse Ox 97 11/27/17 12:30 Vital Signs Reviewed: Yes Eyes: Positive: Conjunctiva Clear ENT: Positive: Normal ENT inspection, Hearing grossly normal, Pharynx normal Neck exam: Normal Neck: Positive: Supple, Nontender, No Lymphadenopathy Respiratory: Positive: Chest non-tender, Lungs clear, Normal breath sounds, No respiratory distress Cardiovascular: Positive: RRR, No Murmur, Pulses Normal Abdominal Exam: Normal Abdomen Description: Positive: Soft, CVA Tenderness (R). Negative: CVA Tenderness (L), Distended, Guarding Musculoskeletal: Positive: Other: - RIGHT RIB: + TENDERNESS, NO SWELLING, NO ERYTHEMA Truncal Trauma Course/Dx - Differential Dx/Diagnosis Provider Diagnoses: RIGHE FLANK PAIN Discharge - Discharge Plan Condition: Stable Disposition: HOME Prescriptions: Naproxen [Naproxen 500 mg] 500 mg PO BID 20 Days #1 tab Patient Education Materials: Flank Pain (ED) Referrals: Connie Rivera MD [Primary Care Provider] - 7 Days Additional Instructions: RIGHT SIDE RIB PAIN / MUSCLE STRAIN NORMAL XRAY CONT. WITH REST, HEAT, NAPROXEN 2 X PER DAY FOR PAIN AND INFLAMMATION FOLLOW UP WITH YOUR PCP IN 1 WEEK IF NOT BETTER
== END 2017-11-27 13:21 | disposition home or self-care (01) ==
LOC: UCCORT 12:01
DX: R10.9 Unspecified abdominal pain (principal); Z72.89 Other problems related to lifestyle
CPT/HCPCS: 81003; 99211; G0463

== ENCOUNTER 2018-05-17 11:52 | Emergency (ER) | payer OTHER ==
[2018-05-17 13:27] VITALS: BP 124/87
--- NOTE | 2018-05-17 13:55 | UC ---
Back Pain HPI - HPI Summary HPI Summary: Pt presents wiht c/o back pain that began 7 months ago. Pt has been seen by PCP , had an MRI and was told has bulging discs. Pt reports that he now is experiencing new areas of pain, in upper thoracic and upper lumbar areas. Denies recent injury or overuse. - History of Current Complaint Chief Complaint: UCBackPain Stated Complaint: LOW BACK PAIN Time Seen by Provider: 05/17/18 13:34 Hx Obtained From: Patient Onset/Duration: Sudden Onset, Lasting Days, Still Present Timing: Constant Severity Initially: Mild Pain Intensity: 8 Back Pain: Is Discrete @ - thoracic ~ 7-8, Lumbar ~ 3-4 Character: Sharp Aggravating Factor(s): Movement, Lifting, Bending Alleviating Factor(s): Rest, Position Associated Signs And Symptoms: Positive: Negative Related History: Similar Episode Dx As - back pain - Risk Factors AAA Risk Factors: Negative TAD Risk Factors: Negative Cauda Equina Risk Factors: Negative Epidural Abscess Risk Factors: Negative - Allergies/Home Medications Allergies/Adverse Reactions: Allergies Allergy/AdvReac Type Severity Reaction Status Date / Time levofloxacin [From Levaquin] Allergy Dizziness Verified 05/17/18 13:18 PMH/Surg Hx/FS Hx/Imm Hx Previously Healthy: Yes - Surgical History Surgical History: Yes Surgery Procedure, Year, and Place: HEMORROIDECTOMY - Family History Known Family History: Positive: Other - positive FMH for URI Negative: Diabetes - Social History Occupation: Employed Full-time Lives: With Family Alcohol Use: Daily Alcohol Amount: 3 cans beer daily Substance Use Type: None Smoking Status (MU): Never Smoked Tobacco Have You Smoked in the Last Year: No - Immunization History Most Recent Tetanus Shot: UTD Review of Systems Constitutional: Negative Skin: Negative Eyes: Negative ENT: Negative Respiratory: Negative Cardiovascular: Negative Gastrointestinal: Negative Genitourinary: Negative Motor: Negative Neurovascular: Negative Musculoskeletal: Arthralgia - back, Myalgia Neurological: Negative Psychological: Negative Is Patient Immunocompromised?: No All Other Systems Reviewed And Are Negative: Yes Physical Exam Triage Information Reviewed: Yes Appearance: Well-Appearing Vital Signs: Initial Vital Signs Temp 97.6 F 05/17/18 13:18 Pulse 57 05/17/18 13:18 Resp 16 05/17/18 13:18 BP 124/87 05/17/18 13:18 Pulse Ox 99 05/17/18 13:18 Vital Signs Reviewed: Yes Eye Exam: Normal ENT Exam: Normal Dental Exam: Normal Neck exam: Normal Neck: Positive: Supple, Nontender Respiratory Exam: Normal Cardiovascular Exam: Normal Musculoskeletal Exam: Normal Musculoskeletal: Positive: Strength Intact, ROM Intact, Other: - c/o point tenderness at ~ 7, 8 and Lumbar ~ 3-5. Neurological Exam: Normal Psychological Exam: Normal Skin Exam: Normal Back Pain Course/Dx - Differential Dx/Diagnosis Differential Diagnosis/HQI/PQRI: Herniated Disc, Strain, Sprain Provider Diagnoses: back pain Discharge - Sign-Out/Discharge Documenting (check all that apply): Patient Departure - Discharge Plan Condition: Stable Disposition: HOME Patient Education Materials: Chronic Back Pain (ED), Back Pain (ED) Referrals: Connie Rivera MD [Primary Care Provider] - As Soon As Possible Additional Instructions: Please follow up with your PCP as soon as possible. If your pain worsens, please seek care immediately at the closest Emergency Room. - Billing Disposition and Condition Condition: STABLE Disposition: Home
== END 2018-05-17 14:02 | disposition home or self-care (01) ==
LOC: UCCORT 11:52
DX: M54.9 Dorsalgia, unspecified (principal); Z88.1 Allergy status to other antibiotic agents
CPT/HCPCS: 99211; G0463

== ENCOUNTER 2019-04-02 17:17 | Emergency (ER) | payer OTHER ==
--- OUTSIDE RECORDS SUMMARY | 2019-04-02 17:30 | XMS REPORT | Continuity of Care Document ---
:1965 External Reference #:[id number] Author Name Connie Rivera MD Address [address] [place] [address] Care Team Providers Name Role Phone Connie Rivera MD Care Team Information Cash Manager Unavailable Connie Rivera MD Primary Care Physician Unavailable Payers Date Identification Numbers Payment Provider Subscriber Effective: 2018 Policy Number: [id number] [facility] Rickie Vásquez JR PayID: [id number] [address] [place] [id number] Advance Directives Description No Information Available Problems Active Problems Provider Date Chest pain Nori Molina ANP Onset: 01/15/2014 Pure hyperglyceridemia Nori Molina ANP Onset: 01/15/2014 Note: April 2017; LDL 50 Trochanteric bursitis Blayne Milton M.D. Onset: 05/04/2016 Spermatocele Sparkle Garcia PA-C Onset: 09/18/2016 Note: L testicle; persistent left epididymal body and tail cyst Adult health examination Sparkle Garcia PA-C Onset: 09/18/2016 Note: PSA Aug 2016; fatty liver hx noted Upper 2012 Polyp of colon Sparkle Garcia PA-C Onset: 09/18/2016 Note: TA; colo to TI Bx March 2013 Liver cyst Sparkle Garcia PA-C Onset: 09/18/2016 Note: CT 2012 H/O: TIA Sparkle Garcia PA-C Onset: 12/19/2016 Note: 2014; LDL 23 HDL Dec Arthritis of shoulder region joint Sparkle Garcia PA-C Onset: 2016 Note: R Hemorrhoids without complication Narayan Dillard MD,FACS Onset: 06/25/2017 Diarrhea Narayan Dillard MD,FACS Onset: 06/25/2017 Congenital cystic disease of liver Narayan Dillard MD,FACS Onset: 07/30/2017 Abdominal pain Osman Isbell MD Onset: 08/31/2017 Constipation Osman Isbell MD Onset: 08/31/2017 Hyperlipidemia Connie Rivera MD Onset: 10/17/2017 Essential hypertension Connie Rivera MD Onset: 10/17/2017 Low back pain Connie Rivera MD Onset: 10/17/2017 Abnormal glucose level Connie Rivera MD Onset: 01/15/2018 White blood cell disorder Connie Rivera MD Onset: 01/15/2018 Lumbar spondylosis Baliee Srinivasan MD Onset: 02/13/2018 Dizziness and giddiness Maxwell Vides M.D. Onset: 03/26/2018 Cobalamin deficiency Cipriano Rhodes DO Onset: 07/19/2018 Kidney stone Berny Olguin M.D. Onset: 11/25/2018 Microscopic hematuria Berny Olguin M.D. Onset: 11/25/2018 Inactive Problems Other hemorrhoids Osman Isebll MD Onset: 06/08/2017 Inactive: 10/16/2017 Abnormal findings diagnostic imaging of liver+biliary Osman Isbell MD Onset: tract Inactive: 10/16/2017 History of polyp of colon Osman Isbell MD Onset: 08/31/2017 Inactive: 10/16/2017 Dysthymia Sparkle Garcia PA-C Onset: 09/18/2016 Inactive: 10/16/2017 Family History Date Family Member(s) Observation Comments General Non Contributory Onset: (age 65 Years) Father Myocardial Infarction and of CVA Father Stroke Mother due to Congestive () Heart Failure Mother Emphysema Mother Chronic Obstructive Pulmonary Disease (COPD) Social History Type Date Description Comments Sex Unknown Marital Status Single Lives With Girlfriend Home Environment Lives Alone Diet Patient follows no dietary restrictions Occupation Unemployed looking for work Work Status Currently Working ADL's/IADL's Independent with all ADL's Tobacco Use Start: Unknown Never Smoked Cigarettes Smokeless Tobacco Never Used Smokeless Tobacco ETOH Use Drinks Alcoholic Beverages 3-4 d Occasionally ETOH Use Uses Alcohol Daily Tobacco Use Start: Unknown Patient denies history of smoking Recreational Drug Use Denies Drug Use Smoking Status Reviewed: 03/10/19 Patient denies history of smoking Allergies, Adverse Reactions, Alerts Active Allergies Reaction Severity Comments Date Levaquin severe dizziness 09/18/2016 Inactive Allergies NKDA 01/13/2014 Medications Active Medications SIG Qnty Indications Ordering Provider Date Vitamin D take one capsule 12caps Connie Rivera MD 03/04/2019 (Ergocalciferol) once a week [id number] Capsules Vitamin C take 2 in the 60units Z71.9 Gagen, 09/02/2018 500mg morning MS Yasmin, Chewtabs DRIER-C, CNM Zinc take one every 30caps Z71.9 Gagen, 09/02/2018 30mg Capsules day MS Yasmin, DRIER-C, CNM Vitamin B-12 Take one every 30tabs D51.9 Gagen, 09/02/2018 Natural day MS Yasmin, 500mcg DRIER-C, CNM Tablets Atorvastatin Calcium take one tablet 90tabs Connie Rivera MD 12/19/2016 by mouth every 20mg Tablets evening Fish Oil 1 po daily Jarad Hernandez, 09/18/2016 600mg Capsules DO Aspirin Ec 1 tab by mouth 90tabs Connie Rivera MD 81mg Tablets every day DR Tylenol Extra 1 tabs by mouth Unknown Strength every morning 500mg Tablets Metoprolol Tartrate take one tablet 90tabs Gagen, by mouth every MS Yasmin, 100mg Tablets day DRIER-C, CNM Naproxen 1 tab by mouth Unknown 250mg Tablets twice a day History Medications Cyclobenzaprine HCL 1 tab by mouth 30tabs Connie Rivera, 12/05/2018 - 10mg at night for 02/10/2019 Tablets back pain Ibuprofen take one tablet 120tabs M54.5 Gagen, 09/30/2018 - 600mg Tablets every 6 hours as Yasmin, 11/25/2018 needed for pain MS, DRIER-C, CNM Prednisone 1 tab daily. Toribio, 09/25/2018 - 10mg Tablets Augusta Beaulieu MD 09/26/2018 Calcium 500 +D Take one in 60tabs E58 Gagen, 07/01/2018 - morning and one Yasmin, 07/01/2018 [id number] Tablets in evening MS, DRIER-C, CNM Calcium + D3 Take one tablet 60tabs E58 Gagen, 07/01/2018 - twice a day Yasmin, 09/30/2018 [id number] Tablets MS, DRIER-C, CNM Diazepam 1 tab by mouth 1 1tabs MiguelConnie kline, 01/16/2018 - 2mg Tablets hour prior to 02/13/2018 mri Bisacodyl Ec 4 tabs by mouth 4tabs Z86.010 Osman Isbell MD 11/23/2017 - 5mg Tablets once 01/15/2018 DR Franco 1 bottle by 1units Z86.010 Osman Isbell MD 11/23/2017 - 1.745GM/30ML mouth once 01/15/2018 Solution Peg 3350/Electrolytes drink 1/2 at 4000ml Z86.010 Osman Isbell MD 2017 - night prior and 01/15/2018 240gm Solution Rec drink 1/2 in the morning of the procedure Cyclobenzaprine HCL 1 tab by mouth 30tabs Miguel, Connie, 11/13/2017 - 10mg at night for 02/13/2018 Tablets back pain Miralax 3 cap by mouth 3Bottles K59.00 Osman Isbell MD 08/31/2017 - 3350NF Powder every day every 01/15/2018 morning Peg 3350/Electrolytes drink 1/2 at 4000ml K59.00 Osman Isbell MD 08/31/2017 - night prior and Unknown 240gm Solution Rec drink 1/2 in the morning of the procedure Amoxicillin 1 by mouth three 21caps J01.90 Hay, 07/03/2017 - 500mg times a day x 7 Ruben August 07/30/2017 Capsules days Benzonatate 1 by mouth three 90caps J01.90 Guido, 07/03/2017 - 200mg times a day as Ruben August 07/30/2017 Capsules needed cough Niacin ER 1 by mouth (500 180tabs G45.9 Guido, 05/02/2017 - (Antihyperlipidemic) mg) every night Ruben August 07/03/2017 at bedtime x4 500mg Tablets ER week, then incr. to 2 tablets (1000 mg) qhs. Mucinex 1 by mouth twice 60tabs Connie Rivera, 03/26/2017 - 600mg Tablets ER a day as needed 07/19/2018 12HR Triamcinolone apply spaingly 90gm R21 Guido, 12/19/2016 - Acetonide twice a day as Ruben August Unknown 0.1% Cream needed to arms for pruritus x 3 weeks Hydroxyzine HCL 1-2 by mouth at 360tabs R21 Hay, 12/19/2016 - 25mg night as needed Ruben August 07/30/2017 Tablets for itching Naproxen 1 by mouth every 180tabs Gagen, 11/22/2016 - 500mg Tablets 12 hours as Yasmin, 11/22/2018 needed MS, DRIER-C, CNM Lisinopril 1 by mouth every 30tabs Blayne Milton, 10/03/2016 - 10mg Tablets day M.DJacob 10/04/2016 Acetaminophen Extra 2 by mouth three 150tabs M70.60 Jarad Hernandez 2015 - Strength times a day as E., DO Unknown 500mg Tablets needed Atorvastatin Calcium 1 tab by mouth 90tabs Z86.73 Jarad Hernandez 09/18/2016 - 40mg daily at bedtime E., DO 12/19/2016 Tablets No Active Medications Unknown 01/15/2014 - 05/11/2015 No Active Medications Unknown 01/13/2014 - 01/15/2014 Tricor 1 po qd 30tabs Unknown - 145mg Tablets Unknown Gemfibrozil 1 by mouth twice Unknown - 600mg Tablets a day 09/18/2016 Metoprolol Tartrate 1 by mouth twice Unknown - 25mg a day Unknown Tablets Ibuprofen Unknown - Tablets Unknown Mucinex Take One Tablet Unknown - 600mg Tablets ER By Mouth Twice A Unknown 12HR Day as Needed Gemfibrozil Oralia, - 600mg Tablets Cary Christine, 12/19/2016 RPA-C Omeprazole 1 po daily Pond, - 20mg Capsules ALYSA Peters Unknown DR Lei 1 daily Unknown - 200mg Capsules 12/05/2018 Immunizations CPT Code Status Date Vaccine Lot # [id number] Given 04/18/2017 Tdap injection [id number] Vital Signs Date Vital Result Comment 03/10/2019 2:13pm BP Systolic Sitting Left Arm 110 mmHg BP Diastolic Sitting Left Arm 70 mmHg Heart Rate 64 /min Respiratory Rate 18 /min Height 65.5 inches 5'5.50" Weight 189.00 lb BMI (Body Mass Index) 31.0 kg/m2 BSA (Body Surface Area) 1.94 m2 [place] body weight in kilograms 63 kg O2 % BldC Oximetry 96 % ra 02/13/2019 3:46pm BP Systolic Sitting Left Arm 136 mmHg BP Diastolic Sitting Left Arm 92 mmHg Body Temperature 97.5 F Heart Rate 88 /min Height 65.5 inches 5'5.50" Weight 196.00 lb BMI (Body Mass Index) 32.1 kg/m2 BSA (Body Surface Area) 1.97 m2 [place] body weight in kilograms 63 kg O2 % BldC Oximetry 96 % 02/10/2019 1:17pm BP Systolic Sitting Right Arm 102 mmHg BP Diastolic Sitting Right Arm 62 mmHg Body Temperature 97.7 F Heart Rate 75 /min Respiratory Rate 24 /min Height 65.5 inches 5'5.50" Weight 194.00 lb BMI (Body Mass Index) 31.8 kg/m2 BSA (Body Surface Area) 1.96 m2 [place] body weight in kilograms 63 kg O2 % BldC Oximetry 97 % ra 2018 2:05pm BP Systolic 132 mmHg BP Diastolic 78 mmHg Body Temperature 98.4 F Heart Rate 64 /min Height 65.5 inches 5'5.50" Weight 186.00 lb BMI (Body Mass Index) 30.5 kg/m2 BSA (Body Surface Area) 1.93 m2 [place] body weight in kilograms 63 kg O2 % BldC Oximetry 98 % room air Pain Level 10 12/05/2018 9:11am BP Systolic Sitting Right Arm 131 mmHg BP Diastolic Sitting Right Arm 78 mmHg Body Temperature 98.6 F Heart Rate 85 /min Height 65.5 inches 5'5.50" Weight 181.00 lb BMI (Body Mass Index) 29.7 kg/m2 BSA (Body Surface Area) 1.91 m2 [place] body weight in kilograms 63 kg O2 % BldC Oximetry 97 % 11/25/2018 1:15pm BP Systolic 108 mmHg BP Diastolic 69 mmHg Body Temperature 98.9 F Heart Rate 72 /min Respiratory Rate 16 /min Height 65.5 inches 5'5.50" Weight 184.12 lb BMI (Body Mass Index) 30.2 kg/m2 BSA (Body Surface Area) 1.92 m2 [place] body weight in kilograms 63 kg O2 % BldC Oximetry 97 % Pain Level 0 09/30/2018 9:23am BP Systolic Sitting Left Arm 112 mmHg BP Diastolic Sitting Left Arm 60 mmHg Body Temperature 98.1 F Heart Rate 61 /min reg Respiratory Rate 18 /min Height 65.5 inches 5'5.50" Weight 180.00 lb BMI (Body Mass Index) 29.5 kg/m2 BSA (Body Surface Area) 1.90 m2 [place] body weight in kilograms 63 kg O2 % BldC Oximetry 98 % ra 09/02/2018 10:06am BP Systolic 120 mmHg BP Diastolic 76 mmHg Body Temperature 97.5 F Heart Rate 70 /min Respiratory Rate 18 /min Height 65.5 inches 5'5.50" Weight 180.50 lb BMI (Body Mass Index) 29.6 kg/m2 BSA (Body Surface Area) 1.90 m2 [place] body weight in kilograms 63 kg O2 % BldC Oximetry 97 % 07/19/2018 10:02am BP Systolic 110 mmHg BP Diastolic 76 mmHg Body Temperature 97.3 F Heart Rate 64 /min Weight 181.38 lb O2 % BldC Oximetry 98 % Pain Level 8 back 07/01/2018 9:09am BP Systolic 113 mmHg BP Diastolic 78 mmHg Body Temperature 97.1 F Heart Rate 60 /min Respiratory Rate 20 /min Weight 179.00 lb O2 % BldC Oximetry 97 % Ra Pain Level 8 back and ribs 03/26/2018 3:15pm BP Systolic 132 mmHg sitting BP Diastolic 82 mmHg sitting Heart Rate 75 /min Respiratory Rate 20 /min Height 66 inches 5'6" Weight 189.38 lb BMI (Body Mass Index) 30.6 kg/m2 BSA (Body Surface Area) 1.95 m2 [place] body weight in kilograms 64 kg O2 % BldC Oximetry 95 % 02/13/2018 10:56am BP Systolic Sitting Left Arm 139 mmHg BP Diastolic Sitting Left Arm 93 mmHg Body Temperature 98.1 F Heart Rate 61 /min Height 66 inches 5'6" Weight 193.00 lb BMI (Body Mass Index) 31.1 kg/m2 BSA (Body Surface Area) 1.97 m2 [place] body weight in kilograms 64 kg 01/15/2018 9:18am BP Systolic Sitting Right Arm 120 mmHg BP Diastolic Sitting Right Arm 73 mmHg Heart Rate 88 /min Height 66 inches 5'6" Weight 201.00 lb BMI (Body Mass Index) 32.4 kg/m2 BSA (Body Surface Area) 2.00 m2 [place] body weight in kilograms 64 kg 11/23/2017 3:42pm BP Systolic Sitting Left Arm 122 mmHg BP Diastolic Sitting Left Arm 80 mmHg Heart Rate 66 /min Respiratory Rate 16 /min Height 66 inches 5'6" Weight 199.00 lb BMI (Body Mass Index) 32.1 kg/m2 BSA (Body Surface Area) 2.00 m2 [place] body weight in kilograms 64 kg 11/13/2017 11:15am BP Systolic 123 mmHg BP Diastolic 73 mmHg Heart Rate 68 /min Respiratory Rate 14 /min Height 66 inches 5'6" Weight 204.38 lb BMI (Body Mass Index) 33.0 kg/m2 BSA (Body Surface Area) 2.02 m2 [place] body weight in kilograms 64 kg O2 % BldC Oximetry 95 % 10/17/2017 9:32am BP Systolic Sitting Left Arm 126 mmHg BP Diastolic Sitting Left Arm 78 mmHg Heart Rate 78 /min Respiratory Rate 16 /min Height 66 inches 5'6" Weight 200.00 lb BMI (Body Mass Index) 32.3 kg/m2 BSA (Body Surface Area) 2.00 m2 [place] body weight in kilograms 64 kg 08/31/2017 8:04am BP Systolic Sitting Left Arm 122 mmHg BP Diastolic Sitting Left Arm 82 mmHg Heart Rate 70 /min Respiratory Rate 16 /min Height 66 inches 5'6" Weight 200.00 lb BMI (Body Mass Index) 32.3 kg/m2 BSA (Body Surface Area) 2.00 m2 [place] body weight in kilograms 64 kg 07/30/2017 10:55am BP Systolic 119 mmHg BP Diastolic 80 mmHg Body Temperature 97.5 F Heart Rate 59 /min Height 66 inches 5'6" Weight 198.00 lb BMI (Body Mass Index) 32.0 kg/m2 BSA (Body Surface Area) 1.99 m2 [place] body weight in kilograms 64 kg 07/11/2017 10:37am BP Systolic 132 mmHg BP Diastolic 88 mmHg Height 66 inches 5'6" Weight 197.00 lb BMI (Body Mass Index) 31.8 kg/m2 BSA (Body Surface Area) 1.99 m2 [place] body weight in kilograms 64 kg 07/03/2017 11:16am BP Systolic 128 mmHg BP Diastolic 86 mmHg Body Temperature 98.0 F Heart Rate 62 /min Respiratory Rate 16 /min Height 66 inches 5'6" Weight 195.50 lb BMI (Body Mass Index) 31.6 kg/m2 BSA (Body Surface Area) 1.98 m2 [place] body weight in kilograms 64 kg O2 % BldC Oximetry 97 % 06/25/2017 10:02am BP Systolic 130 mmHg BP Diastolic 88 mmHg Body Temperature 97.6 F Heart Rate 60 /min Height 66 inches 5'6" Weight 196.00 lb BMI (Body Mass Index) 31.6 kg/m2 BSA (Body Surface Area) 1.98 m2 [place] body weight in kilograms 64 kg O2 % BldC Oximetry 95 % 06/08/2017 3:36pm BP Systolic Sitting Left Arm 120 mmHg BP Diastolic Sitting Left Arm 76 mmHg Heart Rate 67 /min Respiratory Rate 16 /min Height 66 inches 5'6" Weight 196.00 lb BMI (Body Mass Index) 31.6 kg/m2 BSA (Body Surface Area) 1.98 m2 [place] body weight in kilograms 64 kg 05/02/2017 1:05pm BP Systolic Sitting Left Arm 123 mmHg BP Diastolic Sitting Left Arm 77 mmHg Body Temperature 98.0 F Heart Rate 71 /min Height 66 inches 5'6" Weight 205.25 lb BMI (Body Mass Index) 33.1 kg/m2 BSA (Body Surface Area) 2.02 m2 [place] body weight in kilograms 64 kg O2 % BldC Oximetry 98 % 04/18/2017 9:57am BP Systolic 124 mmHg BP Diastolic 84 mmHg Heart Rate 74 /min Height 66 inches 5'6" Weight 204.00 lb BMI (Body Mass Index) 32.9 kg/m2 BSA (Body Surface Area) 2.02 m2 [place] body weight in kilograms 64 kg 12/19/2016 1:11pm BP Systolic 134 mmHg BP Diastolic 86 mmHg Heart Rate 74 /min Height 66 inches 5'6" Weight 207.00 lb BMI (Body Mass Index) 33.4 kg/m2 BSA (Body Surface Area) 2.03 m2 10/10/2016 3:01pm BP Systolic 132 mmHg BP Diastolic 88 mmHg Body Temperature 97.7 F Heart Rate 64 /min Height 66 inches 5'6" Weight 199.00 lb BMI (Body Mass Index) 32.1 kg/m2 BSA (Body Surface Area) 2.00 m2 09/18/2016 12:57pm BP Systolic 122 mmHg BP Diastolic 81 mmHg Heart Rate 72 /min Height 66 inches 5'6" Weight 198.00 lb BMI (Body Mass Index) 32.0 kg/m2 BSA (Body Surface Area) 1.99 m2 05/04/2016 10:20am BP Systolic 136 mmHg BP Diastolic 91 mmHg Heart Rate 67 /min Height 66 inches 5'6" Weight 206.00 lb BMI (Body Mass Index) 33.2 kg/m2 BSA (Body Surface Area) 2.03 m2 [place] body weight in kilograms 64 kg 01/15/2014 9:14am BP Systolic Sitting Right Arm 136 mmHg BP Diastolic Sitting Right Arm 88 mmHg Heart Rate 87 /min Respiratory Rate 16 /min Height 63 inches 5'3" Weight 212.00 lb BMI (Body Mass Index) 37.6 kg/m2 BSA (Body Surface Area) 1.98 m2 Results Test Date Facility Test Result H/L Range Note Comprehensive Metabolic 02/19/2019 [facility] Glucose 102 mg/dL N 74-106 1 Panel [address] [place] [address] [phone] BUN 24 mg/dL High 7-18 Creatinine 1.1 mg/dL N 0.6-1.3 Glom Filtration Rate, Estimate >60 mL/min >60 If >60 mL/min >60 2 BUN/Creat 21.8 ratio Sodium 141 mmol/L N 136-145 Potassium 3.8 mmol/L N 3.5-5.1 Chloride 108 mmol/L High 98-107 Carbon Dioxide 29 mmol/L N 21-32 Anion Gap 4 mEq/L Low 8-16 Calcium 8.3 mg/dL Low 8.5-10.1 Total Protein 6.4 g/dL N 6.4-8.2 Albumin 3.6 g/dL N 3.4-5.0 Globulin 2.8 g/dL N 1.9-4.3 Alb/Glob 1.3 ratio Bilirubin,Total 1.2 mg/dL High 0.2-1.0 Sgot/Ast 21 U/L N 15-37 SGPT/Alt 38 U/L N 12-78 Alkaline Phosphatase 38 U/L Low 45-117 Laboratory test 02/19/2019 [facility] Vitamin 16.8 Low 30.0-100.[address] D,25-Hydroxy ng/[place] [address] [phone] Comprehensive 09/23/2018 [facility] Glucose 102 N 74-106 4 Metabolic Panel [address] mg/[place] [address] [phone] BUN 23 mg/dL High 7-18 Creatinine 1.1 mg/dL N 0.6-1.3 Glom Filtration Rate, Estimate >60 mL/min >60 If >60 mL/min >60 5 BUN/Creat 20.9 ratio Sodium 142 mmol/L N 136-145 Potassium 4.4 mmol/L N 3.5-5.1 Chloride 108 mmol/L High 98-107 Carbon Dioxide 29 mmol/L N 21-32 Anion Gap 5 mEq/L Low 8-16 Calcium 8.5 mg/dL N 8.5-10.1 Total Protein 7.0 g/dL N 6.4-8.2 Albumin 3.8 g/dL N 3.4-5.0 Globulin 3.2 g/dL N 1.9-4.3 Alb/Glob 1.2 ratio Bilirubin,Total 1.2 mg/dL High 0.2-1.0 Sgot/Ast 20 U/L N 15-37 SGPT/Alt 41 U/L N 12-78 Alkaline Phosphatase 43 U/L Low 45-117 CBC W/Automated Diff 09/23/2018 [facility] White Blood 6.8 K/uL N 3.4-10.[address] [place] [address] [phone] Red Blood Count 4.08 M/uL Low 4.20-5.80 Hemoglobin 13.4 gm/dL N 12.8-17.0 Hematocrit 39.6 % N 38.0-48.0 Mean Cell Volume 97.1 fl High 80.0-96.0 Mean Corpuscular HGB 32.8 pg N 27.0-33.0 Mean Corpuscular HGB Conc 33.8 g/dL N 31.7-36.0 Platelet Count 249 K/uL N 155-360 Red Cell Distri Width SD 42.9 fl N 36-51 Red Cell Distri Width %CV 12.4 % N 11.6-15.8 Mean Platelet Volume 8.9 fL N 6.6-10.6 Neut% 23.3 % Low 33.0-73.0 Lymph % 68.7 % High 20.0-42.0 [place] % 6.1 % N 0.0-10.0 Eo% 1.6 % N 0.0-6.6 Bas% 0.3 % N 0.0-1.1 Neut# 1.59 K/uL Low 1.8-7.0 Lymph # 4.69 K/uL High 1.0-4.0 [place] # 0.42 K/uL N 0.0-0.8 Eos # 0.11 K/uL N 0.0-0.5 Baso # 0.02 K/uL N 0.0-0.1 LDL Cholesterol Profile 09/23/2018 [facility] Cholesterol 101 mg/dL <200 6 [address] [place] [address] [phone] Triglycerides 73 mg/dL <150 7 HDL Cholesterol 48 mg/dL >40 8 LDL-Cholesterol 38 mg/dL < 100 9 Urine Dipstick 09/02/2018 [facility] Ua Color yellow Yellow Ua Clarity clear Clear Ua Leuko neg Negative Ua Nitrite neg Negative Ua Urobilinogen neg Low 0.2 - 1.0 E.U./dL Ua Protein trace Negative Ua PH 5.0 Low 6.5-7.5 Ua Blood negative Negative Ua Specific [place] 1.030 1.010-1.030 Ua Ketones trace Negative Ua Bilirubin neg Negative Ua Glucose neg Negative Ua RFX Micro & Culture 09/02/2018 [facility] Urine Color YELLOW Yellow II [address] [place] [address] [phone] Urine Clarity CLOUDY Clear Urine Glucose - Dipstick NEGATIVE mg/dL Negative Urine Bilirubin - Dipstick NEGATIVE Negative Urine Ketone NEGATIVE mg/dL Negative Urine Specific [place] >=1.030 N 1.010-1.030 Urine Blood TRACE Negative Urine PH 5.5 Low 6.5-7.5 Urine Protein - Dipstick NEGATIVE mg/dL Negative Urine Urobilinogen - Dipstick 0.2 E.U./dL N 0.2-1.0 Urine Nitrite - Dipstick NEGATIVE Negative Urine Leuk Esterase NEGATIVE Negative Source: URINE, CLEAN CAT <SEE NOTE> 10 Ua RFX Micro & Culture 08/24/2018 [facility] Urine Color YELLOW Yellow 11 II [address] [place] [address] [phone] Urine Clarity CLEAR Clear Urine Glucose - Dipstick NEGATIVE mg/dL Negative Urine Bilirubin - Dipstick NEGATIVE Negative Urine Ketone TRACE mg/dL High Negative Urine Specific [place] >=1.030 N 1.010-1.030 Urine Blood MODERATE Abnormal Negative Urine PH 5.5 Low 6.5-7.5 Urine Protein - Dipstick NEGATIVE mg/dL Negative Urine Urobilinogen - Dipstick 0.2 E.U./dL N 0.2-1.0 Urine Nitrite - Dipstick NEGATIVE Negative Urine Leuk Esterase NEGATIVE Negative Urine RBC 2-5 rbc/hpf 0-2 Urine WBC 0-2 wbc/hpf 0-7 Urine Epithelial Cells NONE SEEN /lpf None Seen Urine Hyaline Cast 0-2 #/lpf None Seen Source: URINE, CLEAN CAT <SEE NOTE> 12 Slide Review 08/24/2018 [facility] Slide Review . [address] [place] [address] [phone] CBC W/Automated 08/24/2018 [facility] White Blood 10.9 K/uL High 3.4-10.5 Diff [address] [facility] [address] [phone] Red Blood Count 4.20 M/uL N 4.20-5.80 Hemoglobin 13.7 gm/dL N 12.8-17.0 Hematocrit 41.1 % N 38.0-48.0 Mean Cell Volume 97.9 fl High 80.0-96.0 Mean Corpuscular HGB 32.6 pg N 27.0-33.0 Mean Corpuscular HGB Conc 33.3 g/dL N 31.7-36.0 Platelet Count 264 K/uL N 155-360 Red Cell Distri Width SD 42.4 fl N 36-51 Red Cell Distri Width %CV 12.2 % N 11.6-15.8 Mean Platelet Volume 9.1 fL N 6.6-10.6 Neut% 43.7 % N 33.0-73.0 Lymph % 48.6 % High 20.0-42.0 [place] % 6.5 % N 0.0-10.0 Eo% 1.0 % N 0.0-6.6 Bas% 0.2 % N 0.0-1.1 Neut# 4.76 K/uL N 1.8-7.0 Lymph # 5.30 K/uL High 1.0-4.0 [place] # 0.71 K/uL N 0.0-0.8 Eos # 0.11 K/uL N 0.0-0.5 Baso # 0.02 K/uL N 0.0-0.1 Comprehensive Metabolic 08/24/2018 [facility] Glucose 108 mg/dL High 74-106 Panel [address] [place] [address] [phone] BUN 31 mg/dL High 7-18 Creatinine 1.5 mg/dL High 0.6-1.3 Glom Filtration Rate, Estimate 53 mL/min >60 If >60 mL/min >60 14 BUN/Creat 20.6 ratio Sodium 141 mmol/L N 136-145 Potassium 4.3 mmol/L N 3.5-5.1 Chloride 102 mmol/L N 98-107 Carbon Dioxide 31 mmol/L N 21-32 Anion Gap 8 mEq/L N 8-16 Calcium 9.6 mg/dL N 8.5-10.1 Total Protein 7.6 g/dL N 6.4-8.2 Albumin 4.4 g/dL N 3.4-5.0 Globulin 3.2 g/dL N 1.9-4.3 Alb/Glob 1.4 ratio Bilirubin,Total 1.3 mg/dL High 0.2-1.0 Sgot/Ast 27 U/L N 15-37 SGPT/Alt 40 U/L N 12-78 Alkaline Phosphatase 49 U/L N 45-117 Ua RFX Micro & Culture 08/18/2018 [facility] Urine Color YELLOW Yellow 15 II [address] [place] [address] [phone] Urine Clarity CLEAR Clear Urine Glucose - Dipstick NEGATIVE mg/dL Negative Urine Bilirubin - Dipstick NEGATIVE Negative Urine Ketone NEGATIVE mg/dL Negative Urine Specific [place] >=1.030 N 1.010-1.030 Urine Blood NEGATIVE Negative Urine PH 5.5 Low 6.5-7.5 Urine Protein - Dipstick NEGATIVE mg/dL Negative Urine Urobilinogen - Dipstick 0.2 E.U./dL N 0.2-1.0 Urine Nitrite - Dipstick NEGATIVE Negative Urine Leuk Esterase NEGATIVE Negative Source: URINE, CLEAN CAT <SEE NOTE> 16 Vitamin B12 And 07/06/2018 [facility] Vitamin B12 321 pg/mL N 193-986 [address] [place] [address] [phone] Folic Acid 12.0 ng/mL N 3.1-17.5 Laboratory test 07/06/2018 [facility] Vitamin 33.6 30.0-100.0 [address] D,25-Hydroxy ng/[place] [address] [phone] Vitamin A, Serum 59.2 g/dL 33.1-100.0 19 Vitamin B1 (Thiamine),WB 138.0 nmol/L 66.5-200.0 20 Differential-WBC 06/28/2018 [facility] Total Cells 100 #CELLS [address] [place] [address] [phone] Band% 1 % N 0-8 Neutrophils% 25 % Low 33-73 Lymph% 64 % High 20-42 Atypical Lymph% 2 % N 0-7 Monocyte% 7 % N 0-10 Eosinophil% 1 % N 0-5 Platelet Estimate NORMAL RBC Morphology NORMAL 22 Slide Review 06/28/2018 [facility] Slide Review DIFF ORDERED [address] [place] [address] [phone] CBS W/Automated 06/28/2018 [facility] White Blood 7.3 K/uL N 3.4-10.[address] [place] [address] [phone] Red Blood Count 4.26 M/uL N 4.20-5.80 Hemoglobin 13.9 gm/dL N 12.8-17.0 Hematocrit 41.2 % N 38.0-48.0 Mean Cell Volume 96.7 fl High 80.0-96.0 Mean Corpuscular HGB 32.6 pg N 27.0-33.0 Mean Corpuscular HGB Conc 33.7 g/dL N 31.7-36.0 Platelet Count 251 K/uL N 155-360 Red Cell Distri Width SD 41.2 fl N 36-51 Red Cell Distri Width %CV 12.1 % N 11.6-15.8 Mean Platelet Volume 9.3 fL N 6.6-10.6 Neut% 24.1 % Low 33.0-73.0 Lymph % 68.9 % High 20.0-42.0 [place] % 5.2 % N 0.0-10.0 Eo% 1.5 % N 0.0-6.6 Bas% 0.3 % N 0.0-1.1 Neut# 1.76 K/uL Low 1.8-7.0 Lymph # 5.02 K/uL High 1.0-4.0 [place] # 0.38 K/uL N 0.0-0.8 Eos # 0.11 K/uL N 0.0-0.5 Baso # 0.02 K/uL N 0.0-0.1 LDL Cholesterol Profile 06/28/2018 [facility] Cholesterol 107 mg/dL <200 23 [address] [place] [address] [phone] Triglycerides 128 mg/dL <150 24 HDL Cholesterol 40 mg/dL >40 25 LDL-Cholesterol 41 mg/dL < 100 26 Glycohemoglobin A1c 06/28/2018 [facility] Glycohemoglobin 6.1 % N 4.2-6.[address] (A1c) [place], [place] [id number] [phone] eAG 128 mg/dL Comprehensive Metabolic 06/28/2018 [facility] Glucose 111 mg/dL High 74-106 Panel [address] [place] [address] [phone] BUN 20 mg/dL High 7-18 Creatinine 1.1 mg/dL N 0.6-1.3 Glom Filtration Rate, Estimate >60 mL/min >60 If >60 mL/min >60 28 BUN/Creat 18.1 ratio Sodium 142 mmol/L N 136-145 Potassium 3.9 mmol/L N 3.5-5.1 Chloride 107 mmol/L N 98-107 Carbon Dioxide 27 mmol/L N 21-32 Anion Gap 8 mEq/L N 8-16 Calcium 8.3 mg/dL Low 8.5-10.1 Total Protein 6.7 g/dL N 6.4-8.2 Albumin 3.8 g/dL N 3.4-5.0 Globulin 2.9 g/dL N 1.9-4.3 Alb/Glob 1.3 ratio Bilirubin,Total 0.7 mg/dL N 0.2-1.0 Sgot/Ast 21 U/L N 15-37 SGPT/Alt 44 U/L N 12-78 Alkaline Phosphatase 46 U/L N 45-117 Ua RFX Micro & Culture 03/29/2018 [facility] Urine Color YELLOW Yellow [address] [place] [address] [phone] Urine Clarity CLEAR Clear Urine Glucose - Dipstick NEGATIVE mg/dL Negative Urine Bilirubin - Dipstick NEGATIVE Negative Urine Ketone NEGATIVE mg/dL Negative Urine Specific [place] >=1.030 N 1.010-1.030 Urine Blood NEGATIVE Negative Urine PH 5.5 Low 6.5-7.5 Urine Protein - Dipstick NEGATIVE mg/dL Negative Urine Urobilinogen - Dipstick 0.2 E.U./dL N 0.2-1.0 Urine Nitrite - Dipstick NEGATIVE Negative Urine Leuk Esterase NEGATIVE Negative Source: URINE, CLEAN CAT <SEE NOTE> 30 Laboratory test 03/29/2018 [facility] D-Dimer, < 0.27 [address] Quantitative ug/[place] [address] [phone] CBS W/Automated 03/29/2018 [facility] White Blood Count 7.8 K/uL N 3.4-[address] 0.5 [place] [address] [phone] Red Blood Count 4.40 M/uL N 4.20-5.80 Hemoglobin 14.5 gm/dL N 12.8-17.0 Hematocrit 42.5 % N 38.0-48.0 Mean Cell Volume 96.6 fl High 80.0-96.0 Mean Corpuscular HGB 33.0 pg N 27.0-33.0 Mean Corpuscular HGB Conc 34.1 g/dL N 31.7-36.0 Platelet Count 285 K/uL N 155-360 Red Cell Distri Width SD 43.5 fl N 36-51 Red Cell Distri Width %CV 12.6 % N 11.6-15.8 Mean Platelet Volume 8.8 fL N 6.6-10.6 Neut% 30.4 % Low 33.0-73.0 Lymph % 63.2 % High 20.0-42.0 [place] % 5.1 % N 0.0-10.0 Eo% 1.0 % N 0.0-6.6 Bas% 0.3 % N 0.0-1.1 Neut# 2.38 K/uL N 1.8-7.0 Lymph # 4.95 K/uL High 1.0-4.0 [place] # 0.40 K/uL N 0.0-0.8 Eos # 0.08 K/uL N 0.0-0.5 Baso # 0.02 K/uL N 0.0-0.1 Laboratory test finding 03/29/2018 [facility] Lipase 204 U/L N 56-289 [address] [place] [address] [phone] Troponin-I < 0.015 ng/mL 32 Comprehensive Metabolic 03/29/2018 [facility] Glucose 104 mg/dL N 74-106 Panel [address] [place] [address] [phone] BUN 21 mg/dL High 7-18 Creatinine 1.2 mg/dL N 0.6-1.3 Glom Filtration Rate, Estimate >60 mL/min >60 If >60 mL/min >60 33 BUN/Creat 17.5 ratio Sodium 139 mmol/L N 136-145 Potassium 4.1 mmol/L N 3.5-5.1 Chloride 105 mmol/L N 98-107 Carbon Dioxide 27 mmol/L N 21-32 Anion Gap 7 mEq/L Low 8-16 Calcium 8.6 mg/dL N 8.5-10.1 Total Protein 6.9 g/dL N 6.4-8.2 Albumin 4.1 g/dL N 3.4-5.0 Globulin 2.8 g/dL N 1.9-4.3 Alb/Glob 1.5 ratio Bilirubin,Total 0.9 mg/dL N 0.2-1.0 Sgot/Ast 20 U/L N 15-37 SGPT/Alt 47 U/L N 12-78 Alkaline Phosphatase 48 U/L N 45-117 CBS W/Automated 01/23/2018 [facility] White Blood 9.3 K/uL N 3.4-10.5 [address] [place] [address] [phone] Red Blood Count 4.25 M/uL N 4.20-5.80 Hemoglobin 13.9 gm/dL N 12.8-17.0 Hematocrit 40.6 % N 38.0-48.0 Mean Cell Volume 95.5 fl N 80.0-96.0 Mean Corpuscular HGB 32.7 pg N 27.0-33.0 Mean Corpuscular HGB Conc 34.2 g/dL N 31.7-36.0 Platelet Count 274 K/uL N 155-360 Red Cell Distri Width SD 41.9 fl N 36-51 Red Cell Distri Width %CV 12.3 % N 11.6-15.8 Mean Platelet Volume 9.0 fL N 6.6-10.6 Neut% 33.6 % N 33.0-73.0 Lymph % 60.8 % High 20.0-42.0 [place] % 4.9 % N 0.0-10.0 Eo% 0.4 % N 0.0-6.6 Bas% 0.3 % N 0.0-1.1 Neut# 3.13 K/uL N 1.8-7.0 Lymph # 5.67 K/uL High 1.0-4.0 [place] # 0.46 K/uL N 0.0-0.8 Eos # 0.04 K/uL N 0.0-0.5 Baso # 0.03 K/uL N 0.0-0.1 Leukemia/Lymphoma Flow 01/23/2018 [facility] Flow (SEE [address] Interpretation NOTE) [place] [address] [phone] Flow Comment (SEE NOTE) 36 Clinical Information (SEE NOTE) 37 Specimen type (SEE NOTE) 38 Assessment of Leukocytes (SEE NOTE) 39 Viability (SEE NOTE) 40 Immunophenotypic Profile (SEE NOTE) 41 Analysis and Gating Strategy (SEE NOTE) 42 Phenotype Chart (SEE NOTE) 43 Resulting Path Name (SEE NOTE) 44 Comment (SEE NOTE) 45 Slide Review 01/23/2018 [facility] Slide Review DIFF ORDERED [address] [address] [phone] Path Review: 01/23/2018 [facility] Path Review: . 46 [address] [address] [phone] Differential-WBC 01/23/2018 [facility] Total Cells 100 #CELLS Confirm [address] [address] [phone] Neutrophils% 28 % Low 33-73 Lymph% 63 % High 20-42 Atypical Lymph% 5 % N 0-7 Monocyte% 3 % N 0-10 Eosinophil% 1 % N 0-5 Platelet Estimate NORMAL RBC Morphology NORMAL Differential Comment LARGE PLATELETS <SEE NOTE> 47 Comprehensive Metabolic 01/09/2018 [facility] Glucose 106 mg/dL N 74-106 48 Panel [address] [address] [phone] BUN 16 mg/dL N 7-18 Creatinine 1.3 mg/dL N 0.6-1.3 Glom Filtration Rate, Estimate >60 mL/min >60 If >60 mL/min >60 49 BUN/Creat 12.3 ratio Sodium 140 mmol/L N 136-145 Potassium 4.0 mmol/L N 3.5-5.1 Chloride 106 mmol/L N 98-107 Carbon Dioxide 31 mmol/L N 21-32 Anion Gap 3 mEq/L Low 8-16 Calcium 9.0 mg/dL N 8.5-10.1 Total Protein 7.3 g/dL N 6.4-8.2 Albumin 3.9 g/dL N 3.4-5.0 Globulin 3.4 g/dL N 1.9-4.3 Alb/Glob 1.1 ratio Bilirubin,Total 1.2 mg/dL High 0.2-1.0 Sgot/Ast 19 U/L N 15-37 SGPT/Alt 42 U/L N 12-78 Alkaline Phosphatase 49 U/L N 45-117 LDL Cholesterol Profile 01/09/2018 [facility] Cholesterol 109 mg/dL <200 50 [address] [address] [phone] Triglycerides 208 mg/dL High <150 51 HDL Cholesterol 37 mg/dL Low >40 52 LDL-Cholesterol 30 mg/dL < 100 53 CBS W/Automated Diff 01/09/2018 [facility] White Blood 8.4 K/uL N 3.4-10.[address] Count [place] [address] [phone] Red Blood Count 4.34 M/uL N 4.20-5.80 Hemoglobin 14.0 gm/dL N 12.8-17.0 Hematocrit 41.0 % N 38.0-48.0 Mean Cell Volume 94.5 fl N 80.0-96.0 Mean Corpuscular HGB 32.3 pg N 27.0-33.0 Mean Corpuscular HGB Conc 34.1 g/dL N 31.7-36.0 Platelet Count 279 K/uL N 155-360 Red Cell Distri Width SD 41.9 fl N 36-51 Red Cell Distri Width %CV 12.4 % N 11.6-15.8 Mean Platelet Volume 8.8 fL N 6.6-10.6 Neut% 31.1 % Low 33.0-73.0 Lymph % 61.7 % High 20.0-42.0 [place] % 5.6 % N 0.0-10.0 Eo% 1.4 % N 0.0-6.6 Bas% 0.2 % N 0.0-1.1 Neut# 2.61 K/uL N 1.8-7.0 Lymph # 5.18 K/uL High 1.0-4.0 [place] # 0.47 K/uL N 0.0-0.8 Eos # 0.12 K/uL N 0.0-0.5 Baso # 0.02 K/uL N 0.0-0.1 Glycohemoglobin A1c 01/09/2018 [facility] Glycohemoglobin 6.0 % N 4.2-6.[address] (A1c) [place] [address] [phone] eAG 126 mg/dL Slide Review 01/09/2018 [facility] Slide Review DIFF ORDERED [address] [place] [address] [phone] Path Review: 01/09/2018 [facility] Path Review: INDICATED,SLIDE [address] <SEE NOTE> [place] [address] [phone] Differential-WBC 01/09/2018 [facility] Total Cells 100 #CELLS Confirm [address] [place] [address] [phone] Neutrophils% 38 % N 33-73 Lymph% 44 % High 20-42 Atypical Lymph% 16 % High 0-7 Monocyte% 1 % N 0-10 Eosinophil% 1 % N 0-5 Platelet Estimate NORMAL RBC Morphology NORMAL Poc Urinalysis 11/27/2017 [facility] Laboratory Poc Glucose, Negative Negative [phone] Urine Poc Bilirubin, Urine Negative Negative Poc Ketone, Urine Negative Negative Poc Specific [place], Urine >=1.030 N 1.010-1.030 Poc Blood, Urine Negative Negative Poc pH, Urine 5.5 N 5-9 Poc Protein, Urine Negative Negative Poc Urobilinogen, Urine 0.2 Negative Poc Nitrite, Urine Negative Negative Poc Leukocytes, Urine Negative Negative Poc Color, Urine Yellow Poc Clarity, Urine Slightly Cloudy 56 Laboratory 11/22/2017 [facility] Afp Tumor 3.2 0.0-8.3 57, 58 test finding [address] Marker,Serum ng/[place] [address] [phone] Celiac Disease 11/22/2017 [facility] Immunoglobulin A 180 90-386 Comp AB [address] mg/[place] [address] [phone] Antigliadin Abs, IgG 2 units 0-19 59 Antigliadin Abs, IgA 4 units 0-19 60 Endomysial IgA Antibody Negative Negative t-Transglutaminase IgA <2 U/mL 0-3 61 t-Transglutaminase IgG <2 U/mL 0-5 62 TSH Reflex FT4 11/22/2017 [facility] Thyroid Stim 1.27 uIU/mL N 0.30-4.20 And/Or FT3 [address] [place] [address] [phone] Reflex add FT3? N Reflex add FT4? Y CBS W/Automated 10/12/2017 [facility] White Blood 8.4 K/uL N 3.4-10.5 [address] [place] [address] [phone] Red Blood Count 4.48 M/uL N 4.20-5.80 Hemoglobin 14.4 gm/dL N 12.8-17.0 Hematocrit 42.6 % N 38.0-48.0 Mean Cell Volume 95.1 fl N 80.0-96.0 Mean Corpuscular HGB 32.1 pg N 27.0-33.0 Mean Corpuscular HGB Conc 33.8 g/dL N 31.7-36.0 Platelet Count 288 K/uL N 155-360 Red Cell Distri Width SD 42.1 fl N 36-51 Red Cell Distri Width %CV 12.4 % N 11.6-15.8 Mean Platelet Volume 8.8 fL N 6.6-10.6 Neut% 34.0 % N 33.0-73.0 Lymph % 59.6 % High 20.0-42.0 [place] % 5.1 % N 0.0-10.0 Eo% 1.1 % N 0.0-6.6 Bas% 0.2 % N 0.0-1.1 Neut# 2.83 K/uL N 1.8-7.0 Lymph # 4.98 K/uL High 1.0-4.0 [place] # 0.43 K/uL N 0.0-0.8 Eos # 0.09 K/uL N 0.0-0.5 Baso # 0.02 K/uL N 0.0-0.1 Laboratory test 10/12/2017 [facility] Prostate 0.43 < 4.0 [address] Specific ng/[place] [address] Antigen [phone] Comprehensive 10/12/2017 [facility] Glucose 109 mg/dL High 74-106 Metabolic Panel [address] [place], [place] [id number] [phone] BUN 23 mg/dL High 7-18 Creatinine 1.2 mg/dL N 0.6-1.3 Glom Filtration Rate, Estimate >60 mL/min >60 If >60 mL/min >60 65 BUN/Creat 19.1 ratio Sodium 140 mmol/L N 136-145 Potassium 4.0 mmol/L N 3.5-5.1 Chloride 107 mmol/L N 98-107 Carbon Dioxide 29 mmol/L N 21-32 Anion Gap 4 mEq/L Low 8-16 Calcium 8.9 mg/dL N 8.5-10.1 Total Protein 7.2 g/dL N 6.4-8.2 Albumin 3.8 g/dL N 3.4-5.0 Globulin 3.4 g/dL N 1.9-4.3 Alb/Glob 1.1 ratio Bilirubin,Total 0.8 mg/dL N 0.2-1.0 Sgot/Ast 21 U/L N 15-37 SGPT/Alt 43 U/L N 12-78 Alkaline Phosphatase 48 U/L N 45-117 LDL Cholesterol Profile 10/12/2017 [facility] Cholesterol 119 mg/dL <200 66 [address] [place] [address] [phone] Triglycerides 191 mg/dL High <150 67 HDL Cholesterol 40 mg/dL >40 68 LDL-Cholesterol 41 mg/dL < 100 69 Ua RFX Micro & Culture 09/29/2017 [facility] Urine Color YELLOW Yellow 70 II [address] [place] [address] [phone] Urine Clarity CLEAR Clear Urine Glucose - Dipstick NEGATIVE mg/dL Negative Urine Bilirubin - Dipstick NEGATIVE Negative Urine Ketone NEGATIVE mg/dL Negative Urine Specific [place] >=1.030 N 1.010-1.030 Urine Blood NEGATIVE Negative Urine PH 5.5 Low 6.5-7.5 Urine Protein - Dipstick NEGATIVE mg/dL Negative Urine Urobilinogen - Dipstick 0.2 E.U./dL N 0.2-1.0 Urine Nitrite - Dipstick NEGATIVE Negative Urine Leuk Esterase NEGATIVE Negative Source: URINE, CLEAN CAT <SEE NOTE> 71 CBS W/Automated Diff 09/29/2017 [facility] White Blood 7.7 K/uL N 3.4-10.[address] [place] [address] [phone] Red Blood Count 4.36 M/uL N 4.20-5.80 Hemoglobin 14.2 gm/dL N 12.8-17.0 Hematocrit 41.5 % N 38.0-48.0 Mean Cell Volume 95.2 fl N 80.0-96.0 Mean Corpuscular HGB 32.6 pg N 27.0-33.0 Mean Corpuscular HGB Conc 34.2 g/dL N 31.7-36.0 Platelet Count 263 K/uL N 150-400 Red Cell Distri Width SD 42.4 fl N 36-51 Red Cell Distri Width %CV 12.6 % N 11.6-15.8 Mean Platelet Volume 9.0 fL N 6.6-10.6 Neut% 33.5 % N 33.0-73.0 Lymph % 58.7 % High 20.0-42.0 [place] % 5.8 % N 0.0-10.0 Eo% 1.7 % N 0.0-6.6 Bas% 0.3 % N 0.0-1.1 Neut# 2.59 K/uL N 1.8-7.0 Lymph # 4.53 K/uL High 1.0-4.0 [place] # 0.45 K/uL N 0.0-0.8 Eos # 0.13 K/uL N 0.0-0.5 Baso # 0.02 K/uL N 0.0-0.1 Ua RFX Micro & Culture 08/28/2017 [facility] Urine Color YELLOW Yellow [address] [place] [address] [phone] Urine Clarity CLEAR Clear Urine Glucose - Dipstick NEGATIVE mg/dL Negative Urine Bilirubin - Dipstick NEGATIVE Negative Urine Ketone NEGATIVE mg/dL Negative Urine Specific [place] 1.025 N 1.010-1.030 Urine Blood NEGATIVE Negative Urine PH 6.0 Low 6.5-7.5 Urine Protein - Dipstick NEGATIVE mg/dL Negative Urine Urobilinogen - Dipstick 0.2 E.U./dL N 0.2-1.0 Urine Nitrite - Dipstick NEGATIVE Negative Urine Leuk Esterase NEGATIVE Negative Source: URINE, CLEAN CAT <SEE NOTE> 73 CBS W/Automated Diff 08/28/2017 [facility] White Blood 9.2 K/uL N 3.4-10.[address] [place] [address] [phone] Red Blood Count 4.26 M/uL N 4.20-5.80 Hemoglobin 13.9 gm/dL N 12.8-17.0 Hematocrit 41.0 % N 38.0-48.0 Mean Cell Volume 96.2 fl High 80.0-96.0 Mean Corpuscular HGB 32.6 pg N 27.0-33.0 Mean Corpuscular HGB Conc 33.9 g/dL N 31.7-36.0 Platelet Count 236 K/uL N 150-400 Red Cell Distri Width SD 43.3 fl N 36-51 Red Cell Distri Width %CV 12.8 % N 11.6-15.8 Mean Platelet Volume 9.2 fL N 6.6-10.6 Neut% 41.6 % N 33.0-73.0 Lymph % 50.5 % High 20.0-42.0 [place] % 6.5 % N 0.0-10.0 Eo% 1.1 % N 0.0-6.6 Bas% 0.3 % N 0.0-1.1 Neut# 3.83 K/uL N 1.8-7.0 Lymph # 4.66 K/uL High 1.0-4.0 [place] # 0.60 K/uL N 0.0-0.8 Eos # 0.10 K/uL N 0.0-0.5 Baso # 0.03 K/uL N 0.0-0.1 Comprehensive Metabolic 08/28/2017 [facility] Glucose 87 mg/dL N 74-106 Panel [address] [place], [place] [id number] [phone] BUN 25 mg/dL High 7-18 Creatinine 1.2 mg/dL N 0.6-1.3 Glom Filtration Rate, Estimate >60 mL/min >60 If >60 mL/min >60 74 BUN/Creat 20.8 ratio Sodium 141 mmol/L N 136-145 Potassium 3.8 mmol/L N 3.5-5.1 Chloride 107 mmol/L N 98-107 Carbon Dioxide 27 mmol/L N 21-32 Anion Gap 7 mEq/L Low 8-16 Calcium 9.0 mg/dL N 8.5-10.1 Total Protein 7.1 g/dL N 6.4-8.2 Albumin 4.0 g/dL N 3.4-5.0 Globulin 3.1 g/dL N 1.9-4.3 Alb/Glob 1.3 ratio Bilirubin,Total 0.6 mg/dL N 0.2-1.0 Sgot/Ast 21 U/L N 15-37 SGPT/Alt 37 U/L N 12-78 Alkaline Phosphatase 44 U/L Low 45-117 Laboratory test 08/28/2017 [facility] Lipase 228 U/L N 56-[address] [place], [place] [id number] [phone] Occult Blood,Stool 08/28/2017 [facility] Stool Occult NEGATIVE Negative [address] [place] [address] Spec [phone] CBS W/Automated 07/19/2017 [facility] White Blood 6.5 K/uL N 3.4-10.5 [address] [place] [address] [phone] Red Blood Count 4.03 M/uL Low 4.20-5.80 Hemoglobin 13.3 gm/dL N 12.8-17.0 Hematocrit 38.5 % N 38.0-48.0 Mean Cell Volume 95.5 fl N 80.0-96.0 Mean Corpuscular HGB 33.0 pg N 27.0-33.0 Mean Corpuscular HGB Conc 34.5 g/dL N 31.7-36.0 Platelet Count 262 K/uL N 150-400 Red Cell Distri Width SD 41.2 fl N 36-51 Red Cell Distri Width %CV 12.1 % N 11.6-15.8 Mean Platelet Volume 9.4 fL N 6.6-10.6 Neut% 36.6 % N 33.0-73.0 Lymph % 56.2 % High 20.0-42.0 [place] % 5.2 % N 0.0-10.0 Eo% 1.7 % N 0.0-6.6 Bas% 0.3 % N 0.0-1.1 Neut# 2.39 K/uL N 1.8-7.0 Lymph # 3.67 K/uL N 1.0-4.0 [place] # 0.34 K/uL N 0.0-0.8 Eos # 0.11 K/uL N 0.0-0.5 Baso # 0.02 K/uL N 0.0-0.1 Comprehensive Metabolic 07/19/2017 [facility] Glucose 105 mg/dL N 74-[address] [place], [place] [id number] [phone] BUN 25 mg/dL High 7-18 Creatinine 1.2 mg/dL N 0.6-1.3 Glom Filtration Rate, Estimate >60 mL/min >60 If >60 mL/min >60 77 BUN/Creat 20.8 ratio Sodium 143 mmol/L N 136-145 Potassium 4.0 mmol/L N 3.5-5.1 Chloride 108 mmol/L High 98-107 Carbon Dioxide 27 mmol/L N 21-32 Anion Gap 8 mEq/L N 8-16 Calcium 8.5 mg/dL N 8.5-10.1 Total Protein 6.5 g/dL N 6.4-8.2 Albumin 3.8 g/dL N 3.4-5.0 Globulin 2.7 g/dL N 1.9-4.3 Alb/Glob 1.4 ratio Bilirubin,Total 1.2 mg/dL High 0.2-1.0 Sgot/Ast 17 U/L N 15-37 SGPT/Alt 37 U/L N 12-78 Alkaline Phosphatase 48 U/L N 45-117 Laboratory test finding 07/19/2017 [facility] CK 108 U/L N 39-308 [address] [place] [address] [phone] Troponin-I < 0.015 ng/mL 78 CBC 06/27/2017 [facility] White Blood Count 7.3 K/uL N 3.4-10.5 79 [address] [place] [address] [phone] Red Blood Count 4.20 M/uL N 4.20-5.80 Hemoglobin 13.7 gm/dL N 12.8-17.0 Hematocrit 40.3 % N 38.0-48.0 Mean Cell Volume 96.0 fl N 80.0-96.0 Mean Corpuscular HGB 32.6 pg N 27.0-33.0 Mean Corpuscular HGB Conc 34.0 g/dL N 31.7-36.0 Platelet Count 262 K/uL N 150-400 Red Cell Distri Width %CV 12.2 % N 11.6-15.8 Mean Platelet Volume 9.7 fL N 6.6-10.6 Basic Metabolic Panel 06/27/2017 [facility] Glucose 103 mg/dL N 74-106 [address] [place] [address] [phone] BUN 26 mg/dL High 7-18 Creatinine 1.1 mg/dL N 0.6-1.3 Glom Filtration Rate, Estimate >60 mL/min >60 If >60 mL/min >60 80 BUN/Creat 23.6 ratio Sodium 143 mmol/L N 136-145 Potassium 4.2 mmol/L N 3.5-5.1 Chloride 110 mmol/L High 98-107 Carbon Dioxide 29 mmol/L N 21-32 Anion Gap 4 mEq/L Low 8-16 Calcium 9.2 mg/dL N 8.5-10.1 CBS W/Automated 06/02/2017 [facility] White Blood 6.8 K/uL N 3.4-10.5 [address] [place] [address] [phone] Red Blood Count 4.02 M/uL Low 4.20-5.80 Hemoglobin 13.3 gm/dL N 12.8-17.0 Hematocrit 38.1 % N 38.0-48.0 Mean Cell Volume 94.8 fl N 80.0-96.0 Mean Corpuscular HGB 33.1 pg High 27.0-33.0 Mean Corpuscular HGB Conc 34.9 g/dL N 31.7-36.0 Platelet Count 249 K/uL N 150-400 Red Cell Distri Width SD 40.8 fl N 36-51 Red Cell Distri Width %CV 12.1 % N 11.6-15.8 Mean Platelet Volume 9.2 fL N 6.6-10.6 Neut% 40.2 % N 33.0-73.0 Lymph % 51.3 % High 20.0-42.0 [place] % 6.6 % N 0.0-10.0 Eo% 1.8 % N 0.0-6.6 Bas% 0.1 % N 0.0-1.1 Neut# 2.72 K/uL N 1.8-7.0 Lymph # 3.48 K/uL N 1.0-4.0 [place] # 0.45 K/uL N 0.0-0.8 Eos # 0.12 K/uL N 0.0-0.5 Baso # 0.01 K/uL N 0.0-0.1 Comprehensive Metabolic 06/02/2017 [facility] Glucose 112 mg/dL High 74-[address] [place] [address] [phone] BUN 27 mg/dL High 7-18 Creatinine 1.2 mg/dL N 0.6-1.3 Glom Filtration Rate, Estimate >60 mL/min >60 If >60 mL/min >60 82 BUN/Creat 22.5 ratio Sodium 141 mmol/L N 136-145 Potassium 3.9 mmol/L N 3.5-5.1 Chloride 108 mmol/L High 98-107 Carbon Dioxide 26 mmol/L N 21-32 Anion Gap 7 mEq/L Low 8-16 Calcium 8.9 mg/dL N 8.5-10.1 Total Protein 6.7 g/dL N 6.4-8.2 Albumin 3.7 g/dL N 3.4-5.0 Globulin 3.0 g/dL N 1.9-4.3 Alb/Glob 1.2 ratio Bilirubin,Total 1.1 mg/dL High 0.2-1.0 Sgot/Ast 42 U/L High 15-37 SGPT/Alt 55 U/L N 12-78 Alkaline Phosphatase 50 U/L N 45-117 Xray 06/02/2017 [facility] - Radiology Ultrasound, <pending> [address] [place] [address] [phone] CBS 04/30/2017 [facility] White Blood Count 7.3 K/uL N 3.4-10.5 83 W/Automated [address] [place] [address] [phone] Red Blood Count 4.04 M/uL Low 4.20-5.80 Hemoglobin 13.5 gm/dL N 12.8-17.0 Hematocrit 38.5 % N 38.0-48.0 Mean Cell Volume 95.3 fl N 80.0-96.0 Mean Corpuscular HGB 33.4 pg High 27.0-33.0 Mean Corpuscular HGB Conc 35.1 g/dL N 31.7-36.0 Platelet Count 244 K/uL N 150-400 Red Cell Distri Width SD 41.3 fl N 36-51 Red Cell Distri Width %CV 12.2 % N 11.6-15.8 Mean Platelet Volume 9.2 fL N 6.6-10.6 Neut% 32.0 % Low 33.0-73.0 Lymph % 59.7 % High 20.0-42.0 [place] % 5.6 % N 0.0-10.0 Eo% 2.2 % N 0.0-6.6 Bas% 0.5 % N 0.0-1.1 Neut# 2.33 K/uL N 1.8-7.0 Lymph # 4.36 K/uL High 1.0-4.0 [place] # 0.41 K/uL N 0.0-0.8 Eos # 0.16 K/uL N 0.0-0.5 Baso # 0.04 K/uL N 0.0-0.1 Protime 04/30/2017 [facility] Protime 13.6 seconds N 12.0-14.[address] [place] [address] [phone] Inr 1.1 N 0.9-1.1 84 Laboratory test 04/30/2017 [facility] Act Partial 25.0 seconds N 23.4-35.0 [address] [place] [address] [phone] Ethyl Alcohol < 3.0 mg/dL 86 Comprehensive Metabolic 04/30/2017 [facility] Glucose 127 mg/dL High 74-[address] [place] [address] [phone] BUN 23 mg/dL High 7-18 Creatinine 1.1 mg/dL N 0.6-1.3 Glom Filtration Rate, Estimate >60 mL/min >60 If >60 mL/min >60 87 BUN/Creat 20.9 ratio Sodium 141 mmol/L N 136-145 Potassium 3.6 mmol/L N 3.5-5.1 Chloride 107 mmol/L N 98-107 Carbon Dioxide 26 mmol/L N 21-32 Anion Gap 8 mEq/L N 8-16 Calcium 8.5 mg/dL N 8.5-10.1 Total Protein 6.7 g/dL N 6.4-8.2 Albumin 3.9 g/dL N 3.4-5.0 Globulin 2.8 g/dL N 1.9-4.3 Alb/Glob 1.4 ratio Bilirubin,Total 0.8 mg/dL N 0.2-1.0 Sgot/Ast 21 U/L N 15-37 SGPT/Alt 46 U/L N 12-78 Alkaline Phosphatase 45 U/L N 45-117 Laboratory test finding 04/30/2017 [facility] CK 99 U/L N 39-308 [address] [place] [address] [phone] Troponin-I < 0.015 ng/mL 89 Ua RFX Micro & Culture 04/30/2017 [facility] Urine Color YELLOW Yellow II [address] [place] [address] [phone] Urine Clarity CLEAR Clear Urine Glucose - Dipstick NEGATIVE mg/dL Negative Urine Bilirubin - Dipstick NEGATIVE Negative Urine Ketone NEGATIVE mg/dL Negative Urine Specific [place] >=1.030 N 1.010-1.030 Urine Blood NEGATIVE Negative Urine PH 5.0 Low 6.5-7.5 Urine Protein - Dipstick NEGATIVE mg/dL Negative Urine Urobilinogen - Dipstick 0.2 E.U./dL N 0.2-1.0 Urine Nitrite - Dipstick NEGATIVE Negative Urine Leuk Esterase NEGATIVE Negative Source: URINE, CLEAN CAT <SEE NOTE> 90 LDL Cholesterol 04/17/2017 [facility] Cholesterol 133 mg/dL <200 91, 92 Profile [address] [place] [address] [phone] Triglycerides 227 mg/dL High <150 93 HDL Cholesterol 38 mg/dL Low >40 94 LDL-Cholesterol 50 mg/dL < 100 95 Poc Urinalysis 01/13/2017 [facility] Poc Glucose, Negative N Negative [phone] Urine Poc Bilirubin, Urine Negative N Negative Poc Ketone, Urine Negative N Negative Poc Specific [place], Urine >=1.030 N 1.010-1.030 Poc Blood, Urine Negative N Negative Poc pH, Urine 5.0 N 5-9 Poc Protein, Urine Negative N Negative Poc Urobilinogen, Urine 0.2 N Negative Poc Nitrite, Urine Negative N Negative Poc Leukocytes, Urine Negative N Negative Poc Color, Urine Yellow N Poc Clarity, Urine Clear N 96 GC/Chlamydia 01/13/2017 [facility] Chlamydia Negative N Negative 97 Amplified Rna [phone] trachomatis Rna Neisseria gonorrhoeae (GC) Rna Negative N Negative LDL Cholesterol 12/19/2016 [facility] Cholesterol 112 mg/dL <200 98, 99 Profile [address] [place] [address] [phone] Triglycerides 276 mg/dL High <150 100 HDL Cholesterol 34 mg/dL Low >40 101 LDL-Cholesterol 23 mg/dL < 100 102 Comprehensive Metabolic 12/19/2016 [facility] Glucose 121 mg/dL High 74-106 Panel [address] [place] [address] [phone] BUN 15 mg/dL N 7-18 Creatinine 1.1 mg/dL N 0.6-1.3 Glom Filtration Rate, Estimate >60 mL/min >60 If >60 mL/min >60 103 BUN/Creat 13.6 ratio Sodium 141 mmol/L N 136-145 Potassium 3.6 mmol/L N 3.5-5.1 Chloride 105 mmol/L N 98-107 Carbon Dioxide 26 mmol/L N 21-32 Anion Gap 10 mEq/L N 8-16 Calcium 8.6 mg/dL N 8.5-10.1 Total Protein 6.6 g/dL N 6.4-8.2 Albumin 3.8 g/dL N 3.4-5.0 Globulin 2.8 g/dL N 1.9-4.3 Alb/Glob 1.4 ratio Bilirubin,Total 0.7 mg/dL N 0.2-1.0 Sgot/Ast 21 U/L N 15-37 SGPT/Alt 39 U/L N 12-78 Alkaline Phosphatase 45 U/L N 45-117 Ua RFX Micro & Culture 10/10/2016 [facility] Urine Color YELLOW N Yellow 104 II [address] [place] [address] [phone] Urine Clarity CLEAR N Clear Urine Glucose - Dipstick NEGATIVE mg/dL N Negative Urine Bilirubin - Dipstick NEGATIVE N Negative Urine Ketone NEGATIVE mg/dL N Negative Urine Specific [place] >=1.030 N 1.010-1.030 Urine Blood TRACE N Negative Urine PH 5.0 Low 6.5-7.5 Urine Protein - Dipstick NEGATIVE mg/dL N Negative Urine Urobilinogen - Dipstick 0.2 E.U./dL N 0.2-1.0 Urine Nitrite - Dipstick NEGATIVE N Negative Urine Leuk Esterase NEGATIVE N Negative Source: URINE, CLEAN CAT <SEE NOTE> 105 CBC 10/03/2016 [facility] White Blood Count 6.8 K/uL N 3.4-10.5 106 [address] [place], [place] [id number] [phone] Red Blood Count 4.35 M/uL N 4.20-5.80 Hemoglobin 14.7 gm/dL N 12.8-17.0 Hematocrit 42.3 % N 38.0-48.0 Mean Cell Volume 97.2 fl High 80.0-96.0 Mean Corpuscular HGB 33.8 pg High 27.0-33.0 Mean Corpuscular HGB Conc 34.8 g/dL N 31.7-36.0 Platelet Count 330 K/uL N 150-400 Red Cell Distri Width %CV 12.9 % N 11.6-15.8 Mean Platelet Volume 9.3 fL N 6.6-10.6 Lupus Anticoagulant Reflex 10/03/2016 [facility] PTT-LA 32.2 sec N 0.0-40.6 [address] [place] [address] [phone] DRVVT 42.8 sec N 0.0-44.0 Note: Comment: N . 107 Lyme AB/Western 10/03/2016 [facility] Lyme Total < 0.91 N 0.00-0.90 108 Blot Reflex 134 [facility] AB/[place] [address] WB [phone] Lyme Disease Antibody,QT,Igm <0.80 index N 0.00-0.79 109 Rheumatoid Panel 10/03/2016 [facility] Sedimentation Rate 4 mm/hr N 0-15 ([facility]) [address] [place] [address] [phone] Uric Acid 7.0 mg/dL N 3.5-7.2 Hla-B27 Disease Association Negative N . 110 Anti-Nuclear Antibodies Direct Negative AU/mL N Negative Rheumatoid Factor Screen < 10.0 IU/mL N 0.0-15.0 C-Reactive Protein,Quant < 2.9 mg/L N <3.0 1 E78.5 2 Note: Persistent reduction for 3 months or more in an eGFR <60 mL/min/1.73 m2 defines CKD. Patients with eGFR values >/=60 mL/min/1.73 m2 may also have CKD if evidence of persistent proteinuria is present. The original MDRD equation for estimated GFR is not valid for patients less than 18 years of age. Additional information may be found at www.kdoqi.org. 3 Vitamin D deficiency has been defined by the [place] of Medicine and an Endocrine Society practice guideline as a level of serum 25-OH vitamin D less than 20 ng/mL (1,2). The Endocrine Society went on to further define vitamin D insufficiency as a level between 21 and 29 ng/mL (2). 1. IOM (Benge of Medicine). 2010. Dietary reference intakes for calcium and D. [place]: The National Academies Press. 2. Raúl MF, Hattie HA, Leidy GARCIA, et al. Evaluation, treatment, and prevention of vitamin D deficiency: an Endocrine Society clinical practice guideline. JCEM. 2010; 96(7):1911-30. Performed at: RN - [facility] [address] [id number] [employer] Knitting Machine Operator: Sona Cloud MD, Phone: [phone] 4 G34.8 5 Note: Persistent reduction for 3 months or more in an eGFR <60 mL/min/1.73 m2 defines CKD. Patients with eGFR values >/=60 mL/min/1.73 m2 may also have CKD if evidence of persistent proteinuria is present. The original MDRD equation for estimated GFR is not valid for patients less than 18 years of age. Additional information may be found at www.[email or web address]. 6 Reference Guidelines*: Desirable: ........... < 200 mg/dL Borderline High: ..... 200-239 mg/dL High: ................ >=240 mg/dL * The National Cholesterol Education Program (NCEP) 7 Reference Guidelines*: Normal: ............. < 150 mg/dL Borderline High: .... 150-199 mg/dL High: ............... 200-499 mg/dL Very High: .......... > 500 mg/dL * Source: National Cholesterol Education Program (NCEP) 8 Reference Guidelines*: Low HDL: ..... < 40 mg/dL Normal: ..... 40-60 mg/dL Desirable: ... > 60 mg/dL *The National Cholesterol Education Program(NCEP) 9 Reference Guidelines*: Optimal:........... <100 mg/dL Near Optimal....... 100-129 mg/dL Borderline High.... 130-159 mg/dL High............... 160-189 mg/dL Very High.......... >=190 mg/dL * Source: National Cholesterol Education Program (NCEP) 10 URINE, CLEAN CATCH 11 CONSTIPATED, LEGS SHAKING, NAUSEA 12 URINE, CLEAN CATCH 13 Instrument flagged sample for slide review. Less than 10% Bands seen, no other immature WBC's seen. RBC morphology essentially normal. Platelet [id number] CHECKED,PLT EST. AGREES WITH INSTRUMENT VALUE. 14 Note: Persistent reduction for 3 months or more in an eGFR <60 mL/min/1.73 m2 defines CKD. Patients with eGFR values >/=60 mL/min/1.73 m2 may also have CKD if evidence of persistent proteinuria is present. The original MDRD equation for estimated GFR is not valid for patients less than 18 years of age. Additional information may be found at www.[email or web address]. 15 BURNING PAIN PENIS 16 URINE, CLEAN CATCH 17 E83.51 18 Vitamin D deficiency has been defined by the [place]enge of Medicine and an Endocrine Society practice guideline as a level of serum 25-OH vitamin D less than 20 ng/mL (1,2). The Endocrine Society went on to further define vitamin D insufficiency as a level between 21 and 29 ng/mL (2). 1. IOM (Benge of Medicine). 2010. Dietary reference intakes for calcium and D. [place]: The National Academies Press. 2. Raúl MF, Hattie NC, Leidy GARCIA, et al. Evaluation, treatment, and prevention of vitamin D deficiency: an Endocrine Society clinical practice guideline. JCEM. 2010; 96(7):1911-30. Performed at: RN - [facility] [address] [id number] [employer] Knitting Machine Operator: Sona Cloud MD, Phone: [phone] 19 Reference intervals for vitamin A determined from National Health and Nutrition Examination Survey, 0439-3666. Individuals with vitamin A less than 20 ug/dL are considered vitamin A deficient and those with serum concentrations less than 10 ug/dL are considered severely deficient. This test was developed and its performance characteristics determined by [employer]. It has not been cleared or approved by the Food and Drug Administration. Performed at: [address] [id number] [employer] Knitting Machine Operator: Dario Champion MD, Phone: [phone] 20 This test was developed and its performance characteristics determined by [employer]. It has not been cleared or approved by the Food and Drug Administration. Performed at: [address] [id number] [employer] Knitting Machine Operator: Dario Champion MD, Phone: [phone] 21 D72.9 E78.5 R73.9 22 SMUDGE CELLS PRESENT 23 Reference Guidelines*: Desirable: ........... < 200 mg/dL Borderline High: ..... 200-239 mg/dL High: ................ >=240 mg/dL * The National Cholesterol Education Program (NCEP) 24 Reference Guidelines*: Normal: ............. < 150 mg/dL Borderline High: .... 150-199 mg/dL High: ............... 200-499 mg/dL Very High: .......... > 500 mg/dL * Source: National Cholesterol Education Program (NCEP) 25 Reference Guidelines*: Low HDL: ..... < 40 mg/dL Normal: ..... 40-60 mg/dL Desirable: ... > 60 mg/dL *The National Cholesterol Education Program(NCEP) 26 Reference Guidelines*: Optimal:........... <100 mg/dL Near Optimal....... 100-129 mg/dL Borderline High.... 130-159 mg/dL High............... 160-189 mg/dL Very High.......... >=190 mg/dL * Source: National Cholesterol Education Program (NCEP) 27 Elevated levels of HbA1c suggest the need for more aggressive treatment of glycemia. The [place] Diabetes Association recommends that a primary goal of therapy should be a HbA1c of <7% and that physicians should re-evaluate the treatment regimen in patients with HbA1c values consistently >8%. 28 Note: Persistent reduction for 3 months or more in an eGFR <60 mL/min/1.73 m2 defines CKD. Patients with eGFR values >/=60 mL/min/1.73 m2 may also have CKD if evidence of persistent proteinuria is present. The original MDRD equation for estimated GFR is not valid for patients less than 18 years of age. Additional information may be found at www.[email or web address]. 29 BACK PAIN, DIZZY 30 URINE, CLEAN CATCH 31 <=0.49 ug/mL - Low likelihood of DIC, DVT or Pulmonary Embolism >0.49 ug/mL - Additional testing should be done to rule out DIC, DVT, or Pulmonary embolism as clinically indicated. ([facility] has established a 97.89% negative predictive value for thrombotic disease when a cutoff value of 0.5 ug/mL is used.) 32 0.0 - 0.045 ng/mL: Normal 0.046 - 0.5 ng/mL: Suggestive 0.6 - 1.5 ng/mL: Consistent 33 Note: Persistent reduction for 3 months or more in an eGFR <60 mL/min/1.73 m2 defines CKD. Patients with eGFR values >/=60 mL/min/1.73 m2 may also have CKD if evidence of persistent proteinuria is present. The original MDRD equation for estimated GFR is not valid for patients less than 18 years of age. Additional information may be found at www.[email or web address]. 34 D72.9 35 Involvement by a CD5+, CD23+ clonal B-cell population < 5,000/ul, CLL/SLL phenotype, see comment. 36 If the patient has a previously well-established diagnosis of CLL/SLL, this finding represents persistent involvement by CLL/SLL. On the other hand, if the patient does not have a previously well-established diagnosis of CLL/SLL, this finding likely represents monoclonal B-cell lymphocytosis of undetermined significance. Clinical correlation is recommended. 37 Accompanying CBC dated 01-23-18 shows: WBC count 9.3, Miranda 3.1, Lym 5.7, Mon 0.5 38 Peripheral blood 39 A CD5+, CD23+, CD38- monoclonal B cell population is detected with kappa light chain restriction. There is no loss of, or aberrant expression of, the armstrong T cell antigens to suggest a neoplastic T cell process. CD4:CD8 ratio 1.3 No circulating blasts are detected. There is no immunophenotypic evidence of abnormal myeloid maturation. Analysis of the viable lymphocyte population shows: B cells 74%, T cells 23%, NK cells 3% 40 86% 41 Abnormal cell population: present-46% of total cells (Phenotype below) 42 8 color analysis with CD45/SSC 43 CD2 (-) CD3 (-) CD4 (-) CD5 (+) CD7 (-) CD8 (-) CD10 (-) CD11b (-) CD11c (+) CD13 (-) CD14 (-) CD15 (-) CD16 (-) CD19 (+) CD20 (+) Dim CD22 (+) Dim CD23 (+) CD33 (-) CD34 (-) CD38 (-) CD45 (+) CD56 (-) CD57 (-) CD103 (-) CD117 (-) [facility]-7 (-) HLA-DR (+) KAPPA (+) Dim LAMBDA (-) CD64 (-) 44 Lety Salgado M.D. 45 Each antibody in this assay was utilized to assess for potential abnormalities of studied cell populations or to characterize identified abnormalities. This test was developed and its performance characteristics determined by [employer]. It has not been cleared or approved by the U.S. Food and Drug Administration. The FDA has determined that such clearance or approval is not necessary. This test is used for clinical purposes. It should not be regarded as investigational or for research. Performed at: -Y - [facility] [address] [facility], [place] [id number] [employer] Knitting Machine Operator: Eben Nicole MD, Phone: [phone] Performed at: - [facility] [facility] [place] [place] [place] [id number] [employer] Knitting Machine Operator: Eben Nicole MD, Phone: [phone] 46 Reviewed previous history, path review not indicated 47 LARGE PLATELETS PRESENT. 48 Q44.6,E78.5,R73.9, 49 Note: Persistent reduction for 3 months or more in an eGFR <60 mL/min/1.73 m2 defines CKD. Patients with eGFR values >/=60 mL/min/1.73 m2 may also have CKD if evidence of persistent proteinuria is present. The original MDRD equation for estimated GFR is not valid for patients less than 18 years of age. Additional information may be found at www.kdoqi.org. 50 Reference Guidelines*: Desirable: ........... < 200 mg/dL Borderline High: ..... 200-239 mg/dL High: ................ >=240 mg/dL * The National Cholesterol Education Program (NCEP) 51 Reference Guidelines*: Normal: ............. < 150 mg/dL Borderline High: .... 150-199 mg/dL High: ............... 200-499 mg/dL Very High: .......... > 500 mg/dL * Source: National Cholesterol Education Program (NCEP) 52 Reference Guidelines*: Low HDL: ..... < 40 mg/dL Normal: ..... 40-60 mg/dL Desirable: ... > 60 mg/dL *The National Cholesterol Education Program(NCEP) 53 Reference Guidelines*: Optimal:........... <100 mg/dL Near Optimal....... 100-129 mg/dL Borderline High.... 130-159 mg/dL High............... 160-189 mg/dL Very High.......... >=190 mg/dL * Source: National Cholesterol Education Program (NCEP) 54 Elevated levels of HbA1c suggest the need for more aggressive treatment of glycemia. The [place] Diabetes Association recommends that a primary goal of therapy should be a HbA1c of <7% and that physicians should re-evaluate the treatment regimen in patients with HbA1c values consistently >8%. 55 INDICATED,SLIDE SENT Hematology Consultation - Final Report Case# [id number] Final Diagnosis Peripheral blood smear: -Red blood cells are normocytic and normochromic. -Platelets are unremarkable. -White blood cells show mild lymphocytosis with presence of smudge cells. -Flow cytometric study of peripheral blood is suggested to rule out lymphoproliferative disorder. GY 01/10/18 Gross Description Peripheral blood smear GANG KIRK,M.D., Pathologist Reported 01/10/2018 at 5:49 PM, Report electronically signed Performed at: [facility] [id number] [place] [address] 56 [employer] Software Developer: [id number] 57 R93.2 R10.9 K59.00 58 Normal values apply only to males and to non females. These results are not interpretable for females. Bhargavi ECLIA methodology. Values obtained with different assay methods or kits cannot be used interchangeably. Results cannot be interpreted as absolute evidence of the presence or absence of malignant disease. Performed at: - [facility] [address] [id number] [employer] Knitting Machine Operator: Sona Cloud MD, Phone: [phone] 59 Negative 0 - 19 Weak Positive 20 - 30 Moderate to Strong Positive >30 60 Negative 0 - 19 Weak Positive 20 - 30 Moderate to Strong Positive >30 61 Negative 0 - 3 Weak Positive 4 - 10 Positive >10 Tissue Transglutaminase (tTG) has been identified as the endomysial antigen. Studies have demonstr- ated that endomysial IgA antibodies have over 99% specificity for gluten sensitive enteropathy. 62 Negative 0 - 5 Weak Positive 6 - 9 Positive >9 63 Z86.73,E78.5,Z12.5 64 THIS ASSAY IS NOT INTENDED A CANCER SCREENING TEST The concentration of PSA in a given specimen, determined with assays from different manufacturers, can vary due to differences in assay methods and reagent specificity. Values obtained from different assay methods cannot be used interchangeably. Method: [employer] Chemiluminescent immunoassay. 65 Note: Persistent reduction for 3 months or more in an eGFR <60 mL/min/1.73 m2 defines CKD. Patients with eGFR values >/=60 mL/min/1.73 m2 may also have CKD if evidence of persistent proteinuria is present. The original MDRD equation for estimated GFR is not valid for patients less than 18 years of age. Additional information may be found at www.[email or web address]. 66 Reference Guidelines*: Desirable: ........... < 200 mg/dL Borderline High: ..... 200-239 mg/dL High: ................ >=240 mg/dL * The National Cholesterol Education Program (NCEP) 67 Reference Guidelines*: Normal: ............. < 150 mg/dL Borderline High: .... 150-199 mg/dL High: ............... 200-499 mg/dL Very High: .......... > 500 mg/dL * Source: National Cholesterol Education Program (NCEP) 68 Reference Guidelines*: Low HDL: ..... < 40 mg/dL Normal: ..... 40-60 mg/dL Desirable: ... > 60 mg/dL *The National Cholesterol Education Program(NCEP) 69 Reference Guidelines*: Optimal:........... <100 mg/dL Near Optimal....... 100-129 mg/dL Borderline High.... 130-159 mg/dL High............... 160-189 mg/dL Very High.......... >=190 mg/dL * Source: National Cholesterol Education Program (NCEP) 70 R SIDED PAIN 71 URINE, CLEAN CATCH 72 DIARRHEA,NAUSEA,DIZZY,LOWER ABDOMINAL PAIN 73 URINE, CLEAN CATCH 74 Note: Persistent reduction for 3 months or more in an eGFR <60 mL/min/1.73 m2 defines CKD. Patients with eGFR values >/=60 mL/min/1.73 m2 may also have CKD if evidence of persistent proteinuria is present. The original MDRD equation for estimated GFR is not valid for patients less than 18 years of age. Additional information may be found at www.[email or web address]. 75 Method: [employer] Hemoccult Card 76 NAUSEA,LEFT ARM PAIN,DIZZY 77 Note: Persistent reduction for 3 months or more in an eGFR <60 mL/min/1.73 m2 defines CKD. Patients with eGFR values >/=60 mL/min/1.73 m2 may also have CKD if evidence of persistent proteinuria is present. The original MDRD equation for estimated GFR is not valid for patients less than 18 years of age. Additional information may be found at www.[email or web address]. 78 0.0 - 0.045 ng/mL: Normal 0.046 - 0.5 ng/mL: Suggestive 0.6 - 1.5 ng/mL: Consistent 79 [facility] 06/28 [address] 80 Note: Persistent reduction for 3 months or more in an eGFR <60 mL/min/1.73 m2 defines CKD. Patients with eGFR values >/=60 mL/min/1.73 m2 may also have CKD if evidence of persistent proteinuria is present. The original MDRD equation for estimated GFR is not valid for patients less than 18 years of age. Additional information may be found at www.[email or web address]. 81 RECTAL PAIN - EXTREME 82 Note: Persistent reduction for 3 months or more in an eGFR <60 mL/min/1.73 m2 defines CKD. Patients with eGFR values >/=60 mL/min/1.73 m2 may also have CKD if evidence of persistent proteinuria is present. The original MDRD equation for estimated GFR is not valid for patients less than 18 years of age. Additional information may be found at www.[email or web address]. 83 DIZZY,LEGS ARE NUMB 84 THERAPEUTIC INR RANGE: 2.0 - 3.0 DVT, Pulmonary embolus, prophylaxis against venous thrombosis or systemic embolization in high risk patients. 2.5 - 3.5 Mechanical heart valves 85 Is patient on anticoagulants? Coumadin GOLD TOP WAS UNLABELED. 86 GOLD TOP WAS UNLABELED. 87 Note: Persistent reduction for 3 months or more in an eGFR <60 mL/min/1.73 m2 defines CKD. Patients with eGFR values >/=60 mL/min/1.73 m2 may also have CKD if evidence of persistent proteinuria is present. The original MDRD equation for estimated GFR is not valid for patients less than 18 years of age. Additional information may be found at www.[email or web address]. 88 GOLD TOP WAS UNLABELED. 89 0.0 - 0.045 ng/mL: Normal 0.046 - 0.5 ng/mL: Suggestive 0.6 - 1.5 ng/mL: Consistent 90 URINE, CLEAN CATCH 91 E78.5 92 Reference Guidelines*: Desirable: ........... < 200 mg/dL Borderline High: ..... 200-239 mg/dL High: ................ >=240 mg/dL * The National Cholesterol Education Program (NCEP) 93 Reference Guidelines*: Normal: ............. < 150 mg/dL Borderline High: .... 150-199 mg/dL High: ............... 200-499 mg/dL Very High: .......... > 500 mg/dL * Source: National Cholesterol Education Program (NCEP) 94 Reference Guidelines*: Low HDL: ..... < 40 mg/dL Normal: ..... 40-60 mg/dL Desirable: ... > 60 mg/dL *The National Cholesterol Education Program(NCEP) 95 Reference Guidelines*: Optimal:........... <100 mg/dL Near Optimal....... 100-129 mg/dL Borderline High.... 130-159 mg/dL High............... 160-189 mg/dL Very High.......... >=190 mg/dL * Source: National Cholesterol Education Program (NCEP) 96 [employer] Software Developer: [id number] COMFORT BHUMIKA 97 [id number] 98 Z86.73 99 Reference Guidelines*: Desirable: ........... < 200 mg/dL Borderline High: ..... 200-239 mg/dL High: ................ >=240 mg/dL * The National Cholesterol Education Program (NCEP) 100 Reference Guidelines*: Normal: ............. < 150 mg/dL Borderline High: .... 150-199 mg/dL High: ............... 200-499 mg/dL Very High: .......... > 500 mg/dL * Source: National Cholesterol Education Program (NCEP) 101 Reference Guidelines*: Low HDL: ..... < 40 mg/dL Normal: ..... 40-60 mg/dL Desirable: ... > 60 mg/dL *The National Cholesterol Education Program(NCEP) 102 Reference Guidelines*: Optimal:........... <100 mg/dL Near Optimal....... 100-129 mg/dL Borderline High.... 130-159 mg/dL High............... 160-189 mg/dL Very High.......... >=190 mg/dL * Source: National Cholesterol Education Program (NCEP) 103 Note: Persistent reduction for 3 months or more in an eGFR <60 mL/min/1.73 m2 defines CKD. Patients with eGFR values >/=60 mL/min/1.73 m2 may also have CKD if evidence of persistent proteinuria is present. The original MDRD equation for estimated GFR is not valid for patients less than 18 years of age. Additional information may be found at www.kdoqi.org. 104 TESTICLES ARE BLUE 105 URINE, CLEAN CATCH 106 M46.1 107 No lupus anticoagulant was detected. 108 Negative <0.91 Equivocal 0.91 - 1.09 Positive >1.09 109 Negative <0.80 Equivocal 0.80 - 1.19 Positive >1.19 IgM levels may peak at 3-6 weeks post infection, then gradually decline. Performed at: - [facility] [id number] [employer] Knitting Machine Operator: Dario Champion MD, Phone: [phone] Performed at: - [facility] [id number] [employer] Knitting Machine Operator: Sona Cloud MD, Phone: [phone] Performed at: [facility] [id number] 110 HLA-B*27 Negative HLA allele interpretation for all loci based on IMGT/HLA database version 3.21.0 [facility] Lab CLIA ID Number [id number] This test was performed using PCR (Polymerase Chain Reaction)/SSOP (Sequence Specific Oligonucleotide Probes) technique. SBT (Sequence Based Typing) and/or SSP (Sequence Specific Primers) may be used as supplemental methods when necessary. Please contact [facility] Customer Service at if you have any questions. Director of [facility] Dr Adam Carrillo, PhD Procedures Date Code Description Status 03/26/2018 76564 EKG-Tracing And Report Completed 11/29/2017 92029 Colonoscopy With Biopsy Completed 06/28/2017 43453 Enucleation or excision external thrombotic hemorrhoid Completed 08/22/2016 Asp./Injection major joint Completed 06/28/2016 40602 Asp./Injection major joint Completed 05/04/201623788 Asp./Injection major joint Completed 01/27/2014 55245 ECHO [employer]an[employer] Performance Continuous Completed Electrocardio 01/15/2014 25841 EKG-Tracing And Report Completed 12/23/2013 31420 EKG Interpretation And Report Only Completed Encounters Type Date Location Provider Dx Diagnosis Office Visit 03/10/2019 [facility] E55.9 Vitamin D 2:30p Office MS Yasmin, deficiency, DRIER-C, CNM unspecified E83.51 Hypocalcemia E78.5 Hyperlipidemia, unspecified I10 Essential (primary) hypertension R94.5 Abnormal results of liver function studies Q44.6 Cystic disease of liver M54.2 Cervicalgia H02.403 Unspecified ptosis of bilateral eyelids Office Visit 02/13/2019 Kameron Moore M54.12 Radiculopathy, 3:45p Office MD Latricia cervical region Office Visit 02/10/2019 [facility] M79.604 Pain in right leg 1:30p Office MS Yasmin, DRIER-C, CNM Office Visit 2018 [facility] Moore, M25.511 Pain in right 2:15p Office MD Latricia shoulder M54.12 Radiculopathy, cervical region Office Visit 12/05/2018 9:20a Primary Care Connie Rivera MD M54.5 Low back pain Office M25.511 Pain in right shoulder Office Visit 11/25/2018 1:15p Urology Berny Olguin M.D. N20.0 Calculus of kidney R31.21 Asymptomatic microscopic hematuria Office Visit 09/30/2018 9:30a Primary Care Yasmin Quiñonez M54.5 Low back Office MS, DRIER-C, CNM pain M79.602 Pain in left arm F10.10 Alcohol abuse, uncomplicated N48.89 Other specified disorders of penis N20.1 Calculus of ureter E78.5 Hyperlipidemia, unspecified I10 Essential (primary) hypertension Office Visit 09/02/2018 10:30a Primary Care Yasmin Quiñonez, N20.1 Calculus of Office MS, DRIER-C, CNM ureter K59.00 Constipation, unspecified R31.9 Hematuria, unspecified N48.89 Other specified disorders of penis F10.10 Alcohol abuse, uncomplicated D51.9 Vitamin B12 deficiency anemia, unspecified Z71.9 Counseling, unspecified R94.4 Abnormal results of kidney function studies Office Visit 07/19/2018 10:00a Oncology Office Briko, D51.9 Vitamin B12 Cipriano, DO deficiency anemia, unspecified Office Visit 07/01/2018 9:30a Primary Care Khang, M54.5 Low back pain Office MS Yasmin, DRIER-C, CNM R73.9 Hyperglycemia, unspecified D72.9 Disorder of white blood cells, unspecified R42 Dizziness and giddiness E83.51 Hypocalcemia E58 Dietary calcium deficiency F10.10 Alcohol abuse, uncomplicated M77.01 Medial epicondylitis, right elbow Office Visit 03/26/2018 3:30p [facility] [place], R42 Dizziness and Office Ruben Arreola giddiness Office Visit 02/13/2018 10:30a Physical CatBailee haile MD M47.896 Other Medicine & spondylosis, Infectious lumbar region Disease M54.5 Low back pain Office Visit 01/15/2018 9:40a Primary Care Connie Rivera, E78.5 Hyperlipidemia, Office MD unspecified R73.9 Hyperglycemia, unspecified D72.9 Disorder of white blood cells, unspecified M54.5 Low back pain Office Visit 11/23/2017 4:00p MARIA L Isbell MD Q44.6 Cystic disease of liver Z86.010 Personal history of colonic polyps Office Visit 11/13/2017 11:40a Primary Care Connie Rivera M54.5 Low back pain Office MD Office Visit 10/17/2017 10:00a Primary Care Connie Rivera, Q44.6 Cystic disease Office of liver E78.5 Hyperlipidemia, unspecified I10 Essential (primary) hypertension M54.5 Low back pain Office Visit 08/31/2017 8:15a MARIA L Isbell MD K59.00 Constipation, unspecified R10.9 Unspecified abdominal pain R93.2 Abnormal findings on dx imaging of liver and biliary tract Z86.010 Personal history of colonic polyps Office Visit 07/30/2017 11:00a Surgical Office Narayan Dillard Q44.6 Cystic disease ,FACS of liver R19.7 Diarrhea, unspecified Office Visit 07/03/2017 11:30a Primary Care Sparkle Garcia J01.90 Acute sinusitis, Office ADAMS Hyman-C unspecified I10 Essential (primary) hypertension K64.8 Other hemorrhoids Office Visit 06/25/2017 10:00a Surgical Office Gilma, K64.9 Unspecified Narayan, hemorrhoids ,FACS R19.7 Diarrhea, unspecified Office Visit 06/08/2017 3:30p GI Osman Isbell MD K64.8 Other hemorrhoids Office Visit 05/02/2017 1:30p Primary Care Jose, G45.9 Transient cerebral Office Sparkle Hyman, ischemic attack, PA-C unspecified I10 Essential (primary) hypertension M70.60 Trochanteric bursitis, unspecified hip F34.1 Dysthymic disorder Office Visit 04/18/2017 10:00a Primary Care Sparkle Garcia E78.5 Hyperlipidemia, Office ADAMS Hyman-C unspecified R21 Rash and other nonspecific skin eruption M70.60 Trochanteric bursitis, unspecified hip F34.1 Dysthymic disorder I10 Essential (primary) hypertension Z86.73 Prsnl hx of TIA (TIA), and cereb infrc w/o resid deficits Z23 Encounter for immunization Office Visit 12/19/2016 1:30p Primary Care Sparkle Garcia R21 Rash and other Office Yenni, MELYSSA nonspecific skin eruption E78.5 Hyperlipidemia, unspecified Z86.73 Prsnl hx of TIA (TIA), 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 elsewhere classified Office Visit 09/18/2016 1:00p Primary Care Bernadette Garcia.5 Hyperlipidemia, Office Sparkle Yenni, unspecified PA-C Z86.73 Prsnl hx of TIA (TIA), and cereb infrc w/o resid deficits F34.1 Dysthymic disorder M70.60 Trochanteric bursitis, unspecified hip I10 Essential (primary) hypertension Z86.010 Personal history of colonic polyps Office Visit 08/22/2016 2:45p Orthopaedic Office Karine, M70.62 Lisa Cisneros M.D. bursitis, left hip Office Visit 08/10/2016 11:00a Orthopaedic Office Braedenpo, M70.62 Trochanteric Ruben Cisneros bursitis, left hip Office Visit 06/28/2016 11:15a Orthopaedic Office Karine, M70.62 Trochanteric Ruben Cisneros bursitis, left hip Office Visit 05/04/2016 10:45a Orthopaedic Office Karine, M70.62 Trochanterbrandon Cisneros M.D. bursitis, left hip Office Visit 04/29/2015 2:31p Cardiology Office Oralia 786.50 Pain Chest Unspec Vel Roche M.D., FAC Office Visit 09/22/2014 5:25p Cardiology Office Shital Weber 786.50 Pain Chest Unspec MD Office Visit 01/15/2014 9:10a Cardiology Office Nori Molina 786.50 Pain Chest Unspec A., ANP 272.1 Hypertriglyceridemia Pure Office Visit 10/31/2013 10:22a Cardiology Office Vel Barton 786.50 Pain Chest Ruben Roche, FACC Unspec Office Visit 08/22/2013 4:58p Cardiology Office Vel Barton 786.50 Pain Chest Grace. MKaren, FACC Unspec Plan of Treatment Future Appointment(s):06/10/2019 1:30 pm - Yasmin Quiñonez MS, DEANAC, CNM at [facility]/10/2019 - Yasmin Quiñonez MS, JOSE, CNME55.9 Vitamin D deficiency, unspecifiedNew Labs:Vitamin D,25-Hydroxy, Scheduled: 06/01Comments:-- Vitamin D level: 16.8--Take high dose vitamin D, as ordered. When complete, take Vitamin D3 gel capsules 2000 IU QDAYE83.51 HypocalcemiaComments:--Will monitor labs, encourage Patient to take calcium and milk and milk products. Alcohol intake maybe causing decreased absorption of calcium. Will check vit D , Vit A, vit B.--Calcium 8.3E78.5 Hyperlipidemia, unspecifiedNew Labs:LDL Cholesterol Profile, Scheduled: 06/01/19CBC W/Automated Diff, Scheduled: 06/01/19Comments:Total Cholesterol: Lipid panel from 09/23/18 101Triglycerides: 73High Density Lipids: 48Low Density Lipids: 38--Follow a heart healthy diet that emphasizes fruits, vegetables, whole grains, poultry, fish, and nuts. --Citizen Of [place] [employer] recommends limiting saturated fats to 5-6 % of your daily calories and minimizing the amount of saturated fats and trans fatty acids that you eat. Saturated fats are typically solids at room temperature. Trans fatty acids are found in fried foods, baked goods.--A diet high in fiber can help lower cholesterol. --Decrease sugary food and beverages-- Increase physical activity to 30 minutes on most days, as tolerated-- Non smokers should avoid second hand smoke.--Lose weight --taking Atorvastatin Calcium 20 mg take one tablet by mouth every [id number] Essential (primary) hypertensionComments:--B/P 110/70--Taking Metoprolol Tartrate 100 mg take one tablet by mouth every day--Low salt dietR94.5 Abnormal results of liver function studiesNew Labs:Hepatitis Evaluation, Scheduled: 06/01/19Comprehensive Metabolic Panel, Scheduled: 06/01/19Comments:--Bilirubin: 1.2 > 1.2 -- Hepatitis panel --Will order abdominal sonogram -- Patient wants to F/U with Dr Singleton, former Patient of Dr Holder44.6 Cystic disease of liverNew Xrays: Ultrasound, Abdominal, Scheduled: 04/09/19Comments:--11/23/17. Patient was suppose to repeat US in 6 months, which he did not--Will order abdominal sonogram ---- Patient wants to F/U with Dr Singleton, former Patient of Dr Spence:Alexis Singleton MD, VmysbazqekdmrtjpA44.2 CervicalgiaComments:-- Heating pad 20 min on 20 min off --Naproxen , take with food--Discussed stretching exercises --Just finished PT for mid back--Had X-Ray on 12/17/18 which shows Mild degenerative spondylosis. Straightening of cervical spine-- Ortho scheduled MRI, Patient will reschedule due to GFH02.403 Unspecified ptosis of bilateral eyelidsComments:--Monitor-- Patient does not want to see Optho at this time --To let us know if his vision is affectedAllFollow up:-- Refer to Dr Singleton --Abdominal sonogram --Return to office in 3 months. Please get fasting labs1 week prior to office visit.
[2019-04-02 17:40] VITALS: BP 130/80
--- NOTE | 2019-04-02 17:58 | UC ---
Throat Pain/Nasal Miguel Angel HPI - HPI Summary HPI Summary: 53 y/o male presents to the urgent care c/o sore throat w/ neck stiffness and difficulty swallowing since yesterday. Pt states he couldn't sleep due to pain and his neck feels warm to touch. Pt has neck pain (bone spurs) and pain in his throat. Pt says there is something in his throat and he can not swollow. Pt feels he has a temperature and can not sleep. Pt was at the ER yesterday. Pt had one dose of doxycycline that he had left over at [facility] - History of Current Complaint Chief Complaint: UCGeneralIllness Stated Complaint: NECK PAIN, SORE THROAT Time Seen by Provider: 04/02/19 17:57 Hx Obtained From: Patient Pain Intensity: 10 - Allergies/Home Medications Allergies/Adverse Reactions: Allergies Allergy/AdvReac Type Severity Reaction Status Date / Time levofloxacin [From Levaquin] Allergy Dizziness Verified 05/17/18 13:18 PMH/Surg Hx/FS Hx/Imm Hx - Surgical History Surgical History: Yes Surgery Procedure, Year, and Place: HEMORROIDECTOMY - Family History Known Family History: Positive: None, Other - positive H for URI Negative: Diabetes - Social History Alcohol Use: Daily Alcohol Amount: 3 cans beer daily Substance Use Type: None Smoking Status (MU): Never Smoked Tobacco Have You Smoked in the Last Year: No - Immunization History Most Recent Tetanus Shot: UTD Physical Exam Vital Signs: Initial Vital Signs Temp 98.0 F 04/02/19 17:33 Pulse 97 04/02/19 17:33 Resp 16 04/02/19 17:33 BP 130/80 04/02/19 17:33 Pulse Ox 99 04/02/19 17:33 Throat Pain/Nasal Course/Dx - Differential Dx/Diagnosis Provider Diagnosis: Neck pain, Difficulty swallowing Discharge - Sign-Out/Discharge Documenting (check all that apply): Patient Departure - Pt strongly recommended to go to the [facility] for further evaluation and treatment on his presenting symptoms - Discharge Plan Condition: Stable Disposition: HOME-RECOMMEND TO ED Patient Education Materials: Peritonsillar Abscess (ED), Acute Neck Pain (ED) Referrals: Connie Rivera MD [Primary Care Provider] - Additional Instructions: I think you need a higher level or care for your presenting symptoms. I highly recommend you to go to the [facility] for further evaluation and treatment. The risks of not going can be , sepsis, peritonsillar abscess, etc. I spoke to the ER Gen P[place] NP. . They are expecting you. - Billing Disposition and Condition Condition: STABLE Disposition: Home-Recommend to ED
== END 2019-04-02 18:30 | disposition home health service (06) ==
LOC: UCCORT 17:17
DX: J02.9 Acute pharyngitis, unspecified (principal); R13.10 Dysphagia, unspecified; Z88.1 Allergy status to other antibiotic agents
CPT/HCPCS: 87651; 99212; G0463